=== PATIENT | male | born 1980 | race Caucasian/White ===

== ENCOUNTER 2019-03-26 12:45 | Emergency (ER) | payer BC ==
[2019-03-26 13:17] LABS: ABS Basophils 0.1 10^3/ul (0-0.2); ABS Eosinophils 0.1 10^3/ul (0-0.6); ABS Lymphocytes 2.9 10^3/ul (1.0-4.8); ABS Monocytes 0.8 10^3/ul (0-0.8); ABS Neutrophils 4.2 10^3/ul (1.5-7.7); Eosinophil % 1.6 %; Hematocrit 45 % (42-52); Hemoglobin 15.4 g/dL (14.0-18.0); Lymphocyte % 35.4 %; Mean Corpuscular HGB Conc 34 g/dL (31-36); Mean Corpuscular Hemoglobin 28 pg (27-31); Mean Corpuscular Volume 81 fL (80-94); Mean Platelet Volume 7.1 fL (7.4-10.4); Nucleated Red Blood Cells % 0.1; Platelet Count 276 10^3/uL (150-450); Red Blood Count 5.52 10^6 /uL (4.18-5.48); Red Cell Distribution Width 14 % (10-15); White Blood Count 8.1 10^3/uL (3.5-10.8)
[2019-03-26 13:30] LABS: INR 0.91 (0.82-1.09)
[2019-03-26 13:41] LABS: Albumin 4.4 g/dL (3.2-5.2); Albumin/Globulin Ratio 1.4 (1-3); BUN/Creatinine Ratio 15.3 (8-20); Calcium 9.7 mg/dL (8.6-10.3); EGFR African American 122.1 (>60); EGFR Non-African American 100.9 (>60); Globulin 3.2 g/dL (2-4); Total Bilirubin 0.4 mg/dL (0.2-1.0); Total Protein 7.6 g/dL (6.4-8.9)
[2019-03-26 14:04] LABS: Potassium 3.7 mmol/L (3.5-5.0)
[2019-03-26] MEDS ORDERED: NS 0.9% 1000 ML** 1,000 ML IV ONE (14:21)
--- NOTE | 2019-03-26 14:31 | ED ---
Dizziness - HPI Summary HPI Summary: Patient is a 38 y/o M presenting to the ED for a chief complaint of dizziness. Patient is present with his and daughter. Patient states that on 03/26/19, patient was at [employer] in a standing position and suddenly felt dizziness and near syncope that lasted for 20 seconds before resolving. Patient states he felt a jaramillo sensation in his head as well. Patient states he typically has a severe headache every month, but has not had a headache for the last 3-4 weeks. Patient denies SOB, palpitations, CP, nausea, vomiting, diarrhea, blood in the stool, slurred speech, or weakness on one side of the body. Patient denies similar symptoms in the past. Patient has a PMHx of HTN, PSHx of back surgery, and a FMHx of [place] and cardiac disease. Patient admits occasional alcohol use, but denies tobacco or drug use. - History Of Current Complaint Chief Complaint: EDDizziness Stated Complaint: NEAR SYNCOPE Time Seen by Provider: 03/26/19 13:49 Hx Obtained From: Patient Onset/Duration: Resolved Timing: Seconds - 20 seconds Severity Initially: Moderate Severity Currently: Moderate Character: Dizzy Aggravating Factor(s): Nothing Alleviating Factor(s): Nothing Associated Signs And Symptoms: Positive: Other: - Positive near syncope. Negative: Nausea, Vomiting, Diarrhea, Chest Pain, SOB, Palpitations, Blood In Stool, Slurred Speech - Allergies/Home Medications Allergies/Adverse Reactions: Allergies Allergy/AdvReac Type Severity Reaction Status Date / Time No Known Allergies Allergy Verified 03/26/19 12:51 Home Medications: Home Medications Hydrochlorothiazide TAB* [Hydrodiuril TAB*] 12.5 mg PO DAILY 03/26/19 [History Confirmed 03/26/19] Losartan TAB* [Cozaar TAB*] 100 mg PO DAILY 03/26/19 [History Confirmed 03/26/19 ] amLODIPine TAB* [Norvasc 5 mg TAB*] 5 mg PO DAILY 03/26/19 [History Confirmed ] PMH/Surg Hx/FS Hx/Imm Hx Previously Healthy: Yes Endocrine/Hematology History: Denies: Hx Diabetes Cardiovascular History: Reports: Hx Hypertension Denies: Hx Hypercholesterolemia Sensory History: Denies: Hx Legally Blind, Hx Deafness Opthamlomology History: Denies: Hx Legally Blind EENT History: Denies: Hx Deafness - Surgical History Surgical History: Yes Surgery Procedure, Year, and Place: Back surgery - Immunization History Date of Influenza Vaccine: 02/28/2019 Immunizations Up to Date: Yes Infectious Disease History: No Infectious Disease History: Denies: Traveled Outside the [place] in Last 30 Days - Family History Known Family History: Positive: Cardiac Disease, Other - [place] - Social History Occupation: Employed Full-time Lives: With Family Alcohol Use: Weekly Hx Substance Use: No Substance Use Type: Reports: None Hx Tobacco Use: No Smoking Status (MU): Never Smoked Tobacco Review of Systems Negative: Palpitations, Chest Pain Negative: Shortness Of Breath Positive: Other - Negative blood in stool. Negative: Vomiting, Diarrhea, Nausea Neurological: Other - Positive dizziness and near syncope Positive: Headache - Not at present time. Negative: Weakness - One side of body , Slurred Speech All Other Systems Reviewed And Are Negative: Yes Physical Exam - Summary Physical Exam Summary: Constitutional: Well-developed, Well-nourished, Alert. (-) Distressed Skin: Warm, Dry HENT: Normocephalic; Atraumatic Eyes: Conjunctiva normal Neck: Musculoskeletal ROM normal neck. (-) JVD, (-) Stridor, (-) Tracheal deviation Cardio: Rhythm regular. Heart sounds normal; Intact distal pulses; Radial pulses are 2+ and symmetric. (-) Murmur. Tachycardic between 101-110. Pulmonary/Chest wall: Effort normal. (-) Respiratory distress, (-) Wheezes, (-) Rales Abd: Soft, (-) tenderness, (-) Distension, (-) Guarding, (-) Rebound Musculoskeletal: (-) Edema Lymph: (-) Cervical adenopathy Neuro: Alert, Oriented x3 Psych: Mood and affect Normal Triage Information Reviewed: Yes Vital Signs On Initial Exam: Initial Vitals Temp Pulse Resp BP Pulse Ox 96.1 F 106 18 173/113 97 03/26/19 12:49 03/26/19 12:49 03/26/19 12:49 03/26/19 12:49 03/26/19 12:49 Vital Signs Reviewed: Yes Procedures - Sedation Patient Received Moderate/Deep Sedation with Procedure: No Diagnostics - Vital Signs Vital Signs Temp Pulse Resp BP Pulse Ox 03/26/19 12:49 96.1 F 106 18 173/113 97 - Laboratory Lab Results: Lab Results 03/26/19 03/26/19 03/26/19 Range/Units 13:10 13:10 13:10 WBC 8.1 (3.5-10.8) 10^3/uL RBC 5.52 H (4.18-5.48) 10^6 /uL Hgb 15.4 (14.0-18.0) g/dL Hct 45 (42-52) % MCV 81 (80-94) fL MCH 28 (27-31) pg MCHC 34 (31-36) g/dL RDW 14 (10-15) % Plt Count 276 (150-450) 10^3/uL MPV 7.1 L (7.4-10.4) fL Neut % (Auto) 52.1 % Lymph % (Auto) 35.4 % Bell % (Auto) 10.0 % Eos % (Auto) 1.6 % Baso % (Auto) 0.9 % Absolute Neuts (auto) 4.2 (1.5-7.7) 10^3/ul Absolute Lymphs (auto) 2.9 (1.0-4.8) 10^3/ul Absolute Monos (auto) 0.8 (0-0.8) 10^3/ul Absolute Eos (auto) 0.1 (0-0.6) 10^3/ul Absolute Basos (auto) 0.1 (0-0.2) 10^3/ul Absolute Nucleated RBC 0.0 10^3/ul Nucleated RBC % 0.1 INR (Anticoag Therapy) 0.91 (0.82-1.09) D-Dimer, Quantitative Pending Sodium 141 (135-145) mmol/L Potassium 3.7 (3.5-5.0) mmol/L Chloride 105 (101-111) mmol/L Carbon Dioxide 28 (22-32) mmol/L Anion Gap 8 (2-11) mmol/L BUN 13 (6-24) mg/dL Creatinine 0.85 (0.67-1.17) mg/dL Est GFR ( Amer) 122.1 (>60) Est GFR (Non-Af Amer) 100.9 (>60) BUN/Creatinine Ratio 15.3 (8-20) Glucose 156 H (70-100) mg/dL Calcium 9.7 (8.6-10.3) mg/dL Total Bilirubin 0.40 (0.2-1.0) mg/dL AST 19 (13-39) U/L ALT 31 (7-52) U/L Alkaline Phosphatase 50 (34-104) U/L Troponin I 0.00 (<0.04) ng/mL Total Protein 7.6 (6.4-8.9) g/dL Albumin 4.4 (3.2-5.2) g/dL Globulin 3.2 (2-4) g/dL Albumin/Globulin Ratio 1.4 (1-3) TSH Pending Result Diagrams: 03/26/19 13:10 03/26/19 13:10 Lab Statement: Any lab studies that have been ordered have been reviewed, and results considered in the medical decision making process. - EKG 12:52 Cardiac Rate: Tachycardia - 102 BPM EKG Rhythm: Sinus Tachycardia ST Segment: Normal Ectopy: None Summary of EKG Findings: EKG at 12:52 reveals 102 BPM with sinus tachycardia, Q wave in III, S wave in I. Reviewed and interpreted by ED physician. Dizzy Course/Dx - Course Course Of Treatment: Patient is here with an episode of near syncope. Patient is back to his baseline upon arrival. Patient's EKG showed no evidence of underlying arrhythmia. Patient had blood performed which was grossly unremarkable. Patient was given cardiology follow up for possible holter monitor. - Diagnoses Provider Diagnoses: Near syncope Discharge ED - Sign-Out/Discharge Documenting (check all that apply): Patient Departure - Discharge - Discharge Plan Condition: Stable Disposition: HOME Patient Education Materials: Near Syncope (ED) Referrals: Mk Green DO [Medical Doctor] - Timothy Delgado NP [Primary Care Provider] - Additional Instructions: Follow up with Dr. Green to evaluate a possible arrhythmia. Do not exercise until medically cleared by your primary care provider. Return to the Emergency Department if you faint, have a racing heart, chest pain, or trouble breathing. - Billing Disposition and Condition Condition: STABLE Disposition: Home - Attestation Statements Document Initiated by Scribe: Yes Documenting Scribe: Kristin Squires Provider For Whom Scribe is Documenting (Include Credential): Tushar Prieto MD Scribe Attestation: Kristin Villagran, scribed for Tushar Prieto MD on 03/26/19 at 205. Scribe Documentation Reviewed: Yes Provider Attestation: The documentation as recorded by the scribe, Kristin Squires accurately reflects the service I personally performed and the decisions made by me, Tushar Prieto MD Status of Scribe Document: Viewed
[2019-03-26 16:51] LABS: TSH (Thyroid Stimulating Horm) 3.57 mcIU/mL (0.34-5.60)
[2019-03-26 17:14] VITALS: BP 152/89
== END 2019-03-26 17:15 | disposition home or self-care (01) ==
LOC: ED 12:45
DX: R55 Syncope and collapse (principal); I10 Essential (primary) hypertension; Z79.899 Other long term (current) drug therapy
CPT/HCPCS: 36415; 80053; 84443; 84484; 85025; 85379; 85610; 93005; 96360; 96361; 99283

== ENCOUNTER 2019-05-20 18:17 | Emergency (ER) | payer BC ==
--- OUTSIDE RECORDS SUMMARY | 2019-05-20 18:47 | XMS REPORT | Continuity of Care Document ---
:1980 External Reference #:[id number] Author Name Timothy Delgado NP (transmitted by agent of provider Rose Tubbs) Address [address], [place] [address] Problems Active Problems Provider Date Essential hypertension Timothy Delgado NP Onset: 03/27/2017 Type 2 diabetes mellitus Timothy Delgado NP Onset: 07/28/2018 Social History Type Date Description Comments Sex Unknown ETOH Use Occasionally consumes alcohol Tobacco Use Start: Unknown Patient has never smoked Smoking Status Reviewed: 04/06/19 Patient has never smoked Exercise Type/Frequency Exercises regularly Allergies, Adverse Reactions, Alerts Description No Known Drug Allergies Medications Active Medications SIG Qnty Indications Ordering Date Provider Losartan Potassium 1 by mouth 90tabs Timothy Delgado NP 01/30/2019 100mg Tablets every day Hydrochlorothiazide 1 by mouth 90caps Timothy Delgado NP 01/30/2019 12.5mg every day Capsules Cpap Mask And Supplies use with cpap 1units G47.33 Timothy Delgado NP 2017 Device nightly Amlodipine Besylate take 03/28 45tabs Timothy Delgado NP 5mg Tablets tablets by mouth every day Immunizations Description No Information Available Vital Signs Date Vital Result Comment 04/06/2019 1:33pm Height 71.5 inches 5'11.50" Weight 249.25 lb Heart Rate 77 /min BP Systolic 145 mmHg BP Diastolic 90 mmHg Body Temperature 98.2 F O2 % BldC Oximetry 96 % BMI (Body Mass Index) 34.3 kg/m2 09/22/2018 12:35pm Height 71.5 inches 5'11.50" Weight 277.00 lb BP Systolic Sitting 160 mmHg BP Diastolic Sitting 90 mmHg Pain Level 2 BMI (Body Mass Index) 38.1 kg/m2 Results Test Acquired Date Facility Test Result H/L Range Note Lipid Profile 04/06/2019 [facility] Triglycerides 222 mg/dL 1, 2 (Trig/Chol/HDL) [address] [place] [address] [phone] Cholesterol 196 mg/dL 3 HDL Cholesterol 31.2 mg/dL 4 LDL Cholesterol 120 mg/dL 5 Laboratory test 04/06/2019 [facility] Hemoglobin A1c 6.1 % High 4.0-5.6 6 finding 101 (Glyco HGB) [place] [address] [phone] CBC Auto Diff 03/26/2019 [facility] White Blood 8.1 Normal 3.5 -10.[address] Count 10^3/[place] [address] [phone] Red Blood Count 5.52 10^6/uL High 4.18-5.48 Hemoglobin 15.4 g/dL Normal 14.0-18.0 Hematocrit 45 % Normal 42-52 Mean Corpuscular Volume 81 fL Normal 80-94 Mean Corpuscular Hemoglobin 28 pg Normal 27-31 Mean Corpuscular HGB Conc 34 g/dL Normal 31-36 Red Cell Distribution Width 14 % Normal 10-15 Platelet Count 276 10^3/uL Normal 150-450 Mean Platelet Volume 7.1 fL Low 7.4-10.4 Abs Neutrophils 4.2 10^3/uL Normal 1.5-7.7 Abs Lymphocytes 2.9 10^3/uL Normal 1.0-4.8 Abs Monocytes 0.8 10^3/uL Normal 0-0.8 Abs Eosinophils 0.1 10^3/uL Normal 0-0.6 Abs Basophils 0.1 10^3/uL Normal 0-0.2 Abs Nucleated RBC 0.0 10^3/uL Granulocyte % 52.1 % Lymphocyte % 35.4 % Monocyte % 10.0 % Eosinophil % 1.6 % Basophil % 0.9 % Nucleated Red Blood Cells % 0.1 Inr/Protime 03/26/2019 [facility] Inr 0.91 Normal 0.82-1.[address] [place] [address] [phone] Comp Metabolic 03/26/2019 [facility] Sodium 141 mmol/L Normal 135-[address] [place] [address] [phone] Chloride 105 mmol/L Normal 101-111 Co2 Carbon Dioxide 28 mmol/L Normal 22-32 Glucose 156 mg/dL High 70-100 Blood Urea Nitrogen 13 mg/dL Normal 6-24 Creatinine 0.85 mg/dL Normal 0.67-1.17 BUN/Creatinine Ratio 15.3 Normal 8-20 Calcium 9.7 mg/dL Normal 8.6-10.3 Total Protein 7.6 g/dL Normal 6.4-8.9 Albumin 4.4 g/dL Normal 3.2-5.2 Globulin 3.2 g/dL Normal 2-4 Albumin/Globulin Ratio 1.4 Normal 1-3 Total Bilirubin 0.40 mg/dL Normal 0.2-1.0 Alkaline Phosphatase 50 U/L Normal 34-104 Alt 31 U/L Normal 7-52 Egfr Non- 100.9 >60 Egfr 122.1 >60 8 Potassium 3.7 mmol/L Normal 3.5-5.0 Anion Gap 8 mmol/L Normal 2-11 Ast 19 U/L Normal 13-39 Laboratory test 03/26/2019 [facility] Troponin-I (TnI) 0.00 ng/ mL <0.04 9 finding [address] [place] [address] [phone] D Dimer Quantitative < 200 ng/mL Normal Less Than 230 10 TSH (Thyroid Stim Horm) 3.57 mcIU/mL Normal 0.34-5.60 1 FASTING 2 Desirable: <150 Borderline High: 150-199 High: 200-499 Very High: >500 3 Desirable: <200 Borderline High: 200-239 High: >239 4 Low: <40 Desirable: 40-60 High: >60 5 Desirable: <100 Near Optimal: 100-129 Borderline High: 130-159 High: 160-189 Very High: >189 6 Therapeutic target for the treatment of diabetes mellitus patients is <7% HBA1C, and in selective patients <6.0%. Please refer to [place] Diabetes Association diabetic care guidelines for further information. 7 Standard intensity warfarin therapeutic range: 2.0-3.0 High intensity warfarin therapeutic range: 2.5-3.5 8 Because ethnic data is not always readily available, this report includes an eGFR for both -Americans and non- Americans. The National Kidney Disease Education Program (NKDEP) does not endorse the use of the MDRD equation for patients that are not between the ages of 18 and 70, are , have extremes of body size, muscle mass, or nutritional status, or are non- or non-. According to the National Kidney Foundation, irrespective of diagnosis, the stage of the disease is based on the level of kidney function: Stage Description GFR(mL/min/1.73 m(2)) 1 Kidney damage with normal or decreased GFR 90 2 Kidney damage with mild decrease in GFR 60-89 3 Moderate decrease in GFR 30-59 4 Severe decrease in GFR 15-29 5 Kidney failure <15 (or dialysis) 9 Troponin-I testing on Plasma Separator Tubes (PST) has a known false positive rate of 0.20-0.40%. All positive troponins reflex immediately to secondary confirmatory testing. Using the Connectbeam 800 Access Immunoassay systems, the 99th percentile upper reference limit was demonstrated to be < 0.03 ng/mL. 10 Please note: The following may produce a false positive D Dimer test: - Rheumatoid factor greater than 60 IU/ml - Plasma hemoglobin greater than 0.05 gm/dl - Bilirubin greater than 50 mg/dl - Lipids greater than 1000 mg/dl - FDP greater than 20 ug/ml Procedures Description No Information Available Medical Devices Description No Information Available Encounters Description No Information Available Assessments Date Code Description Provider 04/06/2019 E11.9 Type 2 diabetes mellitus without complications Timothy Delgado NP 04/06/2019 I10 Essential (primary) hypertension Timothy Delgado NP Plan of Treatment Future Appointment(s):07/07/2019 9:40 am - Timothy Delgado NP at [facility]05/07/2019 9:20 am - Timothy Delgado NP at [facility]05/26/2019 3:15 pm - Emmy Cat MD at [facility] Hokjkbntwrg29/11/2019 - Timothy Delgado NPE11.9 Type 2 diabetes mellitus without complicationsNew Labs: Hemoglobin A1c (Glyco HGB), Ordered: 04/06/19Comments:Your A1c is 6.1% Continue limiting carbohydrates in your diet.Follow up:3 months, 20 minRecommendations: See your financial services manager every year. It is OK to go every 2 years if he finds no retinal damage from diabetes. Ask your financial services manager to communicate his findings to us. See a cotton sampler every 6 months if you have numbness in your feet or a history of foot ulcers.I10 Essential (primary) hypertensionComments: HYPERTENSION:Your blood pressure is slightly elevated today. Increase the Amlodipine to 7.5mg. If your blood pressure at home remains greater than 135/85 regularly (either number) increase to 10mg. I recommend checking your blood pressure at least 2-3 times a week. If it is running greater than 135/ 85regularly let me know.Follow up:4 weeks Goals 04/06/2019 - Timothy Delgado, NPE11.9 Type 2 diabetes mellitus without complicationsGoal Hemoglobin A1c is less than 7.0%. Goal Blood pressure is less than 130/85. Functional Status Description No Information Available Mental Status Description No Information Available Referrals Description No Information Available
--- OUTSIDE RECORDS SUMMARY | 2019-05-20 18:47 | XMS REPORT | Continuity of Care Document ---
:1980 External Reference #:[id number] Author Name Timothy Delgado NP (transmitted by agent of provider Rose Tubbs) Address [address] [place], [address] [place] [address] Problems Active Problems Provider Date Essential hypertension Timothy Delgado NP Onset: 03/27/2017 Type 2 diabetes mellitus Timothy Delgado NP Onset: 07/28/2018 Social History Type Date Description Comments Sex Unknown ETOH Use Occasionally consumes alcohol Tobacco Use Start: Unknown Patient has never smoked Smoking Status Reviewed: 05/07/19 Patient has never smoked Exercise Type/Frequency Exercises regularly Allergies, Adverse Reactions, Alerts Description No Known Drug Allergies Medications Active Medications SIG Qnty Indications Ordering Date Provider Amlodipine Besylate 1 by mouth 90tabs Timothy Delgado NP 05/07/2019 10mg Tablets every day Losartan Potassium 1 by mouth 90tabs Timothy Delgado NP 01/30/2019 100mg Tablets every day Hydrochlorothiazide 1 by mouth 90caps Timothy Delgado NP 01/30/2019 12.5mg every day Capsules Cpap Mask And Supplies use with cpap 1units G47.33 Timothy Delgado NP 2017 Device nightly Immunizations Description No Information Available Vital Signs Date Vital Result Comment 05/07/2019 9:32am Height 71.5 inches 5'11.50" Weight 277.00 lb Heart Rate 95 /min BP Systolic 148 mmHg BP Diastolic 98 mmHg BP Systolic Recheck 158 mmHg BP Diastolic Recheck 88 mmHg Body Temperature 98.2 F O2 % BldC Oximetry 98 % BMI (Body Mass Index) 38.1 kg/m2 04/06/2019 1:33pm Height 71.5 inches 5'11.50" Weight 249.25 lb Heart Rate 77 /min BP Systolic 145 mmHg BP Diastolic 90 mmHg Body Temperature 98.2 F O2 % BldC Oximetry 96 % BMI (Body Mass Index) 34.3 kg/m2 Results Test Acquired Date Facility Test Result H/L Range Note Lipid Profile 04/06/2019 [facility] Triglycerides 222 mg/dL 1, 2 (Trig/Chol/HDL) [address] [place] [address] [phone] Cholesterol 196 mg/dL 3 HDL Cholesterol 31.2 mg/dL 4 LDL Cholesterol 120 mg/dL 5 Laboratory test 04/06/2019 [facility] Hemoglobin A1c 6.1 % High 4.0-5.6 6 finding 101 (Glyco HGB) [place] [address] [phone] CBC Auto Diff 03/26/2019 [facility] White Blood 8.1 Normal 3.5 -10.8 Count 10^3/[place] [address] [phone] Red Blood Count 5.52 10^6/uL High 4.18-5.48 [...] Red Blood Cells % 0.1 Inr/Protime 03/26/2019 [facility] Inr 0.91 Normal 0.82-1.09 7 [address] [place] [address] [phone] Comp Metabolic 03/26/2019 [facility] Sodium 141 mmol/L Normal 135-145 Panel [address] [place] [address] [phone] Chloride 105 mmol/L Normal 101-111 Co2 Carbon [...] 19 U/L Normal 13-39 Laboratory test 03/26/2019 [facility] Troponin-I (TnI) 0.00 ng/ mL <0.04 9 finding [address] [place] [address] [phone] D Dimer Quantitative < 200 ng/mL Normal [...] in selective patients <6.0%. Please refer to [place] Diabetes Association diabetic care guidelines for further [...] immediately to secondary confirmatory testing. Using the SuppreMol DxI 800 Access Immunoassay systems, the 99th percentile [...] Medical Devices Description No Information Available Encounters Type Date Location Provider Dx Diagnosis Office Visit 05/07/2019 [facility] Internal Timothy Delgado NP I10 Essential (primary ) 9:20a Medicine [facility] hypertension Office Visit 04/06/2019 [facility] Internal Timothy Delgado NP E11.9 Type 2 diabetes 1:40p Medicine [facility] mellitus without complications I10 Essential (primary) hypertension Assessments Date Code Description Provider 05/07/2019 I10 Essential (primary) hypertension Timothy Delgado NP 04/06/2019 E11.9 Type 2 diabetes mellitus without complications Timothy Delgado NP 04/06/2019 I10 Essential (primary) hypertension Timothy Delgado NP Plan of Treatment Future Appointment(s):06/16/2019 9:40 am - [facility] - [facility] 3[facility]15 pm - Emmy Cat MD at [facility] Uzkneofvetk58/12/2019 - Timothy Delgado, NPI10 Essential (primary) hypertensionComments:Increase the amlodipine to 10mg. Continue checking your blood pressure as you have been. If, after two weeks you are still regularly getting readings over 135/85 (either number) increase the hydrochlorothiazide to 25mg.Follow up:4 weeks Functional Status Description No Information Available Mental Status Description No Information Available Referrals Description No Information Available
[2019-05-20 19:27] LABS: ABS Basophils 0.1 10^3/ul (0-0.2); ABS Eosinophils 0.1 10^3/ul (0-0.6); ABS Lymphocytes 2.7 10^3/ul (1.0-4.8); ABS Monocytes 0.7 10^3/ul (0-0.8); Eosinophil % 1.3 %; Hematocrit 46 % (42-52); Hemoglobin 15.8 g/dL (14.0-18.0); Lymphocyte % 31.9 %; Mean Corpuscular HGB Conc 35 g/dL (31-36); Mean Corpuscular Hemoglobin 28 pg (27-31); Mean Corpuscular Volume 81 fL (80-94); Mean Platelet Volume 7.1 fL (7.4-10.4); Nucleated Red Blood Cells % 0.1; Platelet Count 275 10^3/uL (150-450); Red Blood Count 5.65 10^6 /uL (4.18-5.48); Red Cell Distribution Width 14 % (10-15); White Blood Count 8.6 10^3/uL (3.5-10.8)
--- NOTE | 2019-05-20 19:41 | ED ---
Hypertension - HPI Summary HPI Summary: The patient is a 38 y/o M presenting to [facility] with a chief complaint of elevated BP today. He reports that he measures his BP regularly since he has a history of HTN, and he found that that the reading was 199/124 mmHg with a HR of 106 bpm, which is unusual for him. He last checked his BP a few days ago. He denies any CP, SOB, dizziness, vision changes, or headache. He states he has been dealing with cold symptoms and has taken Sudafed yesterday. There are no aggravating or alleviating factors. He takes Amlodipine, Losartan, and Hydrochlorothiazide daily, and he hasnt missed any doses recently. He notes that the Amlodipine was recently increased from 5mg to 10mg. No other PMHx. Nonsmoker, weekly EtOH, no substance use. Medications reviewed. Allergies noted. - History of Current Complaint Chief Complaint: EDHypertension Stated Complaint: HIGH BLOOD PRESSURE PER PT Time Seen by Provider: 05/20/19 19:15 Hx Obtained From: Patient Onset/Duration: Started Minutes Ago, Still Present Timing: Lasting Minutes Reported Blood Pressure Prior To Arrival: 199/124 mmHg Aggravating Factor(s): Nothing Alleviating Factor(s): Nothing Associated Signs & Symptoms: Other: - Negative: dizziness, CP, SOB, KEARNS, vision changes Related Hx: Diagnosed As: - HTN Current Medications: ARB, [place], Diuretic - Allergies/Home Medications Allergies/Adverse Reactions: Allergies Allergy/AdvReac Type Severity Reaction Status Date / Time No Known Allergies Allergy Verified 05/20/19 18:20 PMH/Surg Hx/FS Hx/Imm Hx Endocrine/Hematology History: Denies: Hx Diabetes Cardiovascular History: Reports: Hx Hypertension Denies: Hx Hypercholesterolemia Sensory History: Denies: Hx Legally Blind, Hx Deafness Opthamlomology History: Denies: Hx Legally Blind - Surgical History Surgical History: Yes Surgery Procedure, Year, and Place: Back surgery - Immunization History Date of Influenza Vaccine: Infectious Disease History: No Infectious Disease History: Denies: Traveled Outside the [place] in Last 30 Days - Family History Known Family History: Positive: Cardiac Disease, Other - [place] - Social History Alcohol Use: Weekly Hx Substance Use: No Substance Use Type: Reports: None Hx Tobacco Use: No Smoking Status (MU): Never Smoked Tobacco Review of Systems Negative: Blurred Vision Positive: Other - elevated BP. Negative: Chest Pain Negative: Shortness Of Breath Neurological: Other - Negative: dizziness Negative: Headache All Other Systems Reviewed And Are Negative: Yes Physical Exam - Summary Physical Exam Summary: Constitutional: Well-developed, Well-nourished, Alert. (-) Distressed Skin: Warm, Dry HENT: Normocephalic; Atraumatic Eyes: Conjunctiva normal Neck: Musculoskeletal ROM normal neck. (-) JVD, (-) Stridor, (-) Tracheal deviation Cardio: Rhythm regular, rate normal, Heart sounds normal; Intact distal pulses; Radial pulses are 2+ and symmetric. (-) Murmur Pulmonary/Chest wall: Effort normal. (-) Respiratory distress, (-) Wheezes, (-) Rales Abd: Soft, (-) tenderness, (-) Distension, (-) Guarding, (-) Rebound Musculoskeletal: (-) Edema Lymph: (-) Cervical adenopathy Neuro: Alert, Oriented x3 Psych: Mood and affect Normal Triage Information Reviewed: Yes Vital Signs On Initial Exam: Initial Vitals Temp Pulse Resp BP Pulse Ox 98.6 F 104 22 174/115 99 05/20/19 18:18 05/20/19 18:18 05/20/19 18:18 05/20/19 18:18 05/20/19 18:18 Vital Signs Reviewed: Yes Procedures - Sedation Patient Received Moderate/Deep Sedation with Procedure: No Diagnostics - Vital Signs Vital Signs Temp Pulse Resp BP Pulse Ox 05/20/19 18:18 98.6 F 104 22 174/115 99 - Laboratory Lab Results: Lab Results 05/20/19 Range/Units 19:21 WBC 8.6 (3.5-10.8) 10^3/uL RBC 5.65 H (4.18-5.48) 10^6 /uL Hgb 15.8 (14.0-18.0) g/dL Hct 46 (42-52) % MCV 81 (80-94) fL MCH 28 (27-31) pg MCHC 35 (31-36) g/dL RDW 14 (10-15) % Plt Count 275 (150-450) 10^3/uL MPV 7.1 L (7.4-10.4) fL Neut % (Auto) 58.5 % Lymph % (Auto) 31.9 % Dewitt % (Auto) 7.6 % Eos % (Auto) 1.3 % Baso % (Auto) 0.7 % Absolute Neuts (auto) 5.0 (1.5-7.7) 10^3/ul Absolute Lymphs (auto) 2.7 (1.0-4.8) 10^3/ul Absolute Monos (auto) 0.7 (0-0.8) 10^3/ul Absolute Eos (auto) 0.1 (0-0.6) 10^3/ul Absolute Basos (auto) 0.1 (0-0.2) 10^3/ul Absolute Nucleated RBC 0.0 10^3/ul Nucleated RBC % 0.1 Result Diagrams: 05/20/19 19:21 05/20/19 19:21 Lab Statement: Any lab studies that have been ordered have been reviewed, and results considered in the medical decision making process. - EKG 1940 Cardiac Rate: NL - 96 bpm EKG Rhythm: Sinus Rhythm Summary of EKG Findings: EKG at 1940 reveals sinus rhythm at 96 bpm. No STEMI. ED physician has reviewed and interpreted this EKG. Re-Evaluation - Re-Evaluation First Eval Re-Evaluation Time: 20:15 Comment: We discussed results and plan for discharge. Hypertension Course/Dx - Course Course Of Treatment: Patient is here with asymptomatic hypertension. Patient was just measuring his blood pressure randomly today noted to be higher than normal. Patient had no evidence of end-stage organ damage on physical exam or history. Patient had an EKG which showed no evidence of ischemia. Patient had a negative troponin, negative Cr for kidney damage. Patient has been treating a viral URI with pseudoephedrine yesterday which could have raised his blood pressure today. Patient was encouraged to follow up with his primary care doctor for better management of his blood pressure. - Diagnoses Provider Diagnoses: HTN (hypertension) Discharge ED - Sign-Out/Discharge Documenting (check all that apply): Patient Departure - Patient will be discharged home. - Discharge Plan Condition: Stable Disposition: HOME Patient Education Materials: Chronic Hypertension (ED) Referrals: Timothy Delgado [facility] [Primary Care Provider] - 3 Days Additional Instructions: Follow up with your primary care provider in 1-3 days for a stress test. Return to the emergency department for any vision changes, chest pain, dizziness, slurred speech, weakness on one side of the body, or any other concerning symptoms. - Billing Disposition and Condition Condition: STABLE Disposition: Home - Attestation Statements Document Initiated by Vicky: Yes Documenting Scribe: Janet Chew Provider For Whom Vicky is Documenting (Include Credential): Dr. Tushar Prieto MD Scribe Attestation: Janet Villagran scribed for Dr. Tushar Prieto MD on 05/20/19 at 2105. Scribe Documentation Reviewed: Yes Provider Attestation: The documentation as recorded by the Janet butler accurately reflects the service I personally performed and the decisions made by me, Dr. Tushar Prieto MD Status of Vicky Document: Viewed
[2019-05-20 19:44] LABS: BUN/Creatinine Ratio 15.3 (8-20); Calcium 9.3 mg/dL (8.6-10.3); EGFR African American 147.8 (>60); EGFR Non-African American 122.2 (>60); Potassium 3.2 mmol/L (3.5-5.0)
[2019-05-20] MEDS ORDERED: Ibuprofen TAB* 600 MG PO ONE (20:08)
[2019-05-20 20:17] VITALS: BP 175/106
== END 2019-05-20 20:18 | disposition home or self-care (01) ==
LOC: ED 18:17
DX: I10 Essential (primary) hypertension (principal); Z79.899 Other long term (current) drug therapy
CPT/HCPCS: 36415; 80048; 84484; 85025; 93005; 99282; A9270-GY

== ENCOUNTER 2019-08-24 18:19 | Emergency (ER) | payer BC, OTHER ==
--- OUTSIDE RECORDS SUMMARY | 2019-08-24 18:48 | XMS REPORT | Continuity of Care Document ---
:1980 External Reference #:[id number] Author Name Timothy Delgado NP (transmitted by agent of provider Courtney Sherman) Address [address] [facility], [place] [address] Problems Active Problems Provider Date Essential hypertension Timothy Delgado NP Onset: 03/27/2017 Type 2 diabetes mellitus Timothy Delgado NP Onset: 07/28/2018 Sprain of ankle Misael Barney MD Onset: 07/27/2019 Social History Type Date Description Comments Sex Unknown ETOH Use Occasionally consumes alcohol Tobacco Use Start: Unknown Patient has never smoked Recreational Drug Use Denies Drug Use Smoking Status Reviewed: 08/11/19 Patient has never smoked Exercise Type/Frequency Exercises regularly gym, weights, 3-4 days per week. Allergies, Adverse Reactions, Alerts Description No Known Drug Allergies Medications Active Medications SIG Qnty Indications Ordering Provider Date Eplerenone 50mg once daily 30tabs E87.6 Kenny Clark MD 08/04/2019 50mg Tablets Atenolol 1 by mouth every 90tabs I10 Timothy Delgado NP 07/01/2019 50mg Tablets day Amlodipine Besylate 1 by mouth every 90tabs Timothy Delgado NP 05/07/2019 day 10mg Tablets Cpap Mask And use with cpap 1units G47.33 Timothy Delgado NP 05/22/2018 Supplies nightly Device History Medications Irbesartan 1 by mouth 30tabs Timothy Delgado NP 08/10/2019 - 150mg Tablets every day 08/11/2019 Losartan Potassium 1 by mouth 90tabs Timothy Delgado NP 08/07/2019 - 100mg Tablets every day 08/10/2019 Hydrochlorothiazide 1 by mouth 90caps Timothy Delgado NP 08/07/2019 - 12.5mg Capsules every day 08/11/2019 Losartan 1 by mouth 90tabs Timothy Delgado NP 08/04/2019 - Potassium/Hydrochlorothiazid every day 08/06/2019 e 100-12.5mg Tablets Atenolol 1 by mouth 90tabs I10 Timothy Delgado NP 05/21/2019 - 25mg Tablets every day 07/01/2019 Immunizations Description No Information Available Vital Signs Date Vital Result Comment 08/11/2019 9:27am Height 72 inches 6'0" Weight 277.00 lb Heart Rate 64 /min BP Systolic Sitting 129 mmHg BP Diastolic Sitting 79 mmHg BP Systolic Recheck 134 mmHg BP Diastolic Recheck 88 mmHg Body Temperature 97.2 F O2 % BldC Oximetry 97 % BMI (Body Mass Index) 37.6 kg/m2 08/04/2019 8:54am Height 72 inches 6'0" Weight 284.00 lb w/ shoes/walking boot Heart Rate 64 /min BP Systolic Sitting 135 mmHg BP Diastolic Sitting 91 mmHg BMI (Body Mass Index) 38.5 kg/m2 Results Test Acquired Date Facility Test Result H/L Range Note Lipid Profile 08/05/2019 [facility] Triglycerides 185 mg/dL 1 (Trig/Chol/HDL) [address] [place] [address] [phone] Cholesterol 188 mg/dL 2 HDL Cholesterol 36.6 mg/dL 3 LDL Cholesterol 114 mg/dL 4 Laboratory test 08/05/2019 [facility] Hemoglobin A1c 6.1 % High 4.0-5.6 5 finding (Glyco HGB) [place] [address] [phone] Laboratory test 08/05/2019 [facility] Aldosterone 7.1 <=[address] ng/[place] [address] [phone] Renin <0.6 ng/mL/h 7 Cortisol 4.04 g/dL 8 Acth 17 pg/mL 9 Magnesium 1.9 mg/dL Normal 1.9-2.7 Basic Metabolic 08/05/2019 [facility] Sodium 141 mmol/L Normal 135-145 Panel [address] [place] [address] [phone] Potassium 3.8 mmol/L Normal 3.5-5.0 Chloride 105 mmol/L Normal 101-111 Co2 Carbon Dioxide 27 mmol/L Normal 22-32 Anion Gap 9 mmol/L Normal 2-11 Glucose 124 mg/dL High 70-100 Blood Urea Nitrogen 13 mg/dL Normal 6-24 Creatinine 0.63 mg/dL Low 0.67-1.17 BUN/Creatinine Ratio 20.6 High 8-20 Calcium 9.7 mg/dL Normal 8.6-10.3 Egfr Non- 142.5 >60 Egfr 172.5 >60 10 Aldosterone 05/25/2019 [facility] Urine 33 mcg/24h Abnormal 2.0-[address] [place] [address] [phone] Urine Collection Duration 24 h Urine Volume 3850 mL 11 Urine Metanephrines 05/25/2019 [facility] Urine 162 mcg/24h [address] [place] [address] [phone] Urine Normetanephrine 543 mcg/24h 13 Urine Total Metanephrines 705 mcg/24h 14 Urine Collection Duration 24 h Urine Volume 3850 mL 15 Basic Metabolic 05/25/2019 [facility] Sodium 137 mmol/L Normal 135-[address] [place] [address] [phone] Potassium 3.7 mmol/L Normal 3.5-5.0 Chloride 102 mmol/L Normal 101-111 Co2 Carbon Dioxide 27 mmol/L Normal 22-32 Anion Gap 8 mmol/L Normal 2-11 Glucose 257 mg/dL High 70-100 Blood Urea Nitrogen 11 mg/dL Normal 6-24 Creatinine 0.73 mg/dL Normal 0.67-1.17 BUN/Creatinine Ratio 15.1 Normal 8-20 Calcium 9.0 mg/dL Normal 8.6-10.3 Egfr Non- 120.2 >60 Egfr 145.5 >60 16 Laboratory test 05/25/2019 [facility] Aldosterone 8.6 ng/dL < =21 [address] [place] [address] [phone] Sodium 24HR Urine 05/25/2019 [facility] Urine Collection [address] [place] [address] [phone] Urine Total Volume 3850 mL Urine Sodium Concentration 62 mmol/L Urine Sodium/24 Hour 238 mmol/24 High 40-220 Creatinine Clearance 05/25/2019 [facility] Urine Collection [address] [place] [address] [phone] Urine Total Volume 3850 mL Urine Creatinine Concentration 72.23 mg/dL Creatinine, Serum 0.73 mg/dL Normal 0.51-0.95 Creatinine Clearance 265 mL/min High 97-137 Catecholamine 24HR 05/25/2019 [facility] Urine Collection 24 h Urine Fract [address] [place] [address] [phone] Urine Total Volume 3850 mL Urine Norepinephrine 89 mcg/24h Abnormal 15-80 Urine Epinephrine 8.9 mcg/24h <21 Urine Dopamine 373 mcg/24h 65-400 18 CBC Auto 05/20/2019 [facility] White Blood 8.6 10^3/uL Normal 3.5-10.[address] [place] [address] [phone] Red Blood Count 5.65 10^6/uL High 4.18-5.48 Hemoglobin 15.8 g/dL Normal 14.0-18.0 Hematocrit 46 % Normal 42-52 Mean Corpuscular Volume 81 fL Normal 80-94 Mean Corpuscular Hemoglobin 28 pg Normal 27-31 Mean Corpuscular HGB Conc 35 g/dL Normal 31-36 Red Cell Distribution Width 14 % Normal 10-15 Platelet Count 275 10^3/uL Normal 150-450 Mean Platelet Volume 7.1 fL Low 7.4-10.4 Abs Neutrophils 5.0 10^3/uL Normal 1.5-7.7 Abs Lymphocytes 2.7 10^3/uL Normal 1.0-4.8 Abs Monocytes 0.7 10^3/uL Normal 0-0.8 Abs Eosinophils 0.1 10^3/uL Normal 0-0.6 Abs Basophils 0.1 10^3/uL Normal 0-0.2 Abs Nucleated RBC 0.0 10^3/uL Granulocyte % 58.5 % Lymphocyte % 31.9 % Monocyte % 7.6 % Eosinophil % 1.3 % Basophil % 0.7 % Nucleated Red Blood Cells % 0.1 Basic Metabolic 05/20/2019 [facility] Sodium 136 mmol/L Normal 135-[address] [place] [address] [phone] Potassium 3.2 mmol/L Low 3.5-5.0 Chloride 101 mmol/L Normal 101-111 Co2 Carbon Dioxide 28 mmol/L Normal 22-32 Anion Gap 7 mmol/L Normal 2-11 Glucose 133 mg/dL High 70-100 Blood Urea Nitrogen 11 mg/dL Normal 6-24 Creatinine 0.72 mg/dL Normal 0.67-1.17 BUN/Creatinine Ratio 15.3 Normal 8-20 Calcium 9.3 mg/dL Normal 8.6-10.3 Egfr Non- 122.2 >60 Egfr 147.8 >60 19 Laboratory test 05/20/2019 [facility] Troponin-I (TnI) 0.00 < 0.03 [address] ng/[place] [address] [phone] Lipid Profile 04/06/2019 [facility] Triglycerides 222 mg/dL 21, 22 (Trig/Chol/HDL) [address] [place] [address] [phone] Cholesterol 196 mg/dL 23 HDL Cholesterol 31.2 mg/dL 24 LDL Cholesterol 120 mg/dL 25 Laboratory test 04/06/2019 [facility] Hemoglobin A1c 6.1 % High 4.0-5.6 [address] (Glyco HGB) [place] [address] [phone] CBC Auto Diff 03/26/2019 [facility] White Blood 8.1 Normal 3.5 -10.[address] Count 10^3/[place] [address] [phone] Red Blood Count 5.52 10^6/uL High 4.18-5.48 [...] Red Blood Cells % 0.1 Inr/Protime 03/26/2019 [facility] Inr 0.91 Normal 0.82-1.[address] [place] [address] [phone] Comp Metabolic 03/26/2019 [facility] Sodium 141 mmol/L Normal 135-[address] [place] [address] [phone] Chloride 105 mmol/L Normal 101-111 Co2 Carbon [...] Egfr Non- 100.9 >60 Egfr 122.1 >60 28 Potassium 3.7 mmol/L Normal 3.5-5.0 Anion Gap 8 mmol/L Normal 2-11 Ast 19 U/L Normal 13-39 Laboratory test 03/26/2019 [facility] Troponin-I (TnI) 0.00 ng/ mL <0.04 29 finding [address] [place] [address] [phone] D Dimer Quantitative < 200 ng/mL Normal Less Than 230 30 TSH (Thyroid Stim Horm) 3.57 mcIU/mL Normal 0.34-5.60 1 Desirable: <150 Borderline High: 150-199 High: 200-499 Very High: >500 2 Desirable: <200 Borderline High: 200-239 High: >239 3 Low: <40 Desirable: 40-60 High: >60 4 Desirable: <100 Near Optimal: 100-129 Borderline High: 130-159 High: 160-189 Very High: >189 5 Therapeutic target for the treatment of diabetes mellitus patients is <7% HBA1C, and in selective patients <6.0%. Please refer to [place] [employer] diabetic care guidelines for further information. 6 ADDITIONAL INFORMATION Reference range for patients 11 years and older is based on upright A.M. collection from subjects without sodium restrictions. This test was developed and its performance characteristics determined by [facility] in a manner consistent with CLIA requirements. This test has not been cleared or approved by the U.S. Food and Drug Administration. Test Performed by: [facility] [place] [address] Vice President Quality Assurance: Amrik Matthew M.D. Ph.D.; CLIA# [id number] 7 REFERENCE VALUE (Peripheral vein specimen) Na-deplete, upright: Mean: 10.8 Range: 2.9-24 Na-replete, upright: Mean: 1.9 Range: < or =0.6-4.3 ADDITIONAL INFORMATION Testing performed by Liquid Chromatography-Tandem Mass Spectrometry (LC-MS/MS). This test was developed and its performance characteristics determined by [facility] in a manner consistent with CLIA requirements. This test has not been cleared or approved by the U.S. Food and Drug Administration. Test Performed by: [facility] [employer] [place] [address] Vice President Quality Assurance: Amrik Matthew M.D. Ph.D.; CLIA# [id number] 8 AM 8.7-22.4 PM <10 9 REFERENCE VALUE 7.2-63 (a.m. collection) Test Performed by: [facility] [place] [address] Vice President Quality Assurance: Amrik Matthew M.D. Ph.D.; CLIA# [id number] 10 Because ethnic data is not always readily [...] 15-29 5 Kidney failure <15 (or dialysis) 11 ADDITIONAL INFORMATION This test was developed and its performance characteristics determined by [facility] in a manner consistent with CLIA requirements. This test has not been cleared or approved by the U.S. Food and Drug Administration. Test Performed by: [facility] [employer] [place] [address] Vice President Quality Assurance: Amrik Matthew M.D. Ph.D.; CLIA# [id number] 12 REFERENCE VALUE 44-261 (Normotensive) <400 (Hypertensive) 13 REFERENCE VALUE 111-419 (Normotensive) <900 (Hypertensive) 14 REFERENCE VALUE 200-614 (Normotensive) <1300 (Hypertensive) 15 ADDITIONAL INFORMATION This test was developed and its performance characteristics determined by [facility] in a manner consistent with CLIA requirements. This test has not been cleared or approved by the U.S. Food and Drug Administration. Test Performed by: [facility] [employer] - [facility] [address] [place] [address] Vice President Quality Assurance: Amrik Matthew M.D. Ph.D.; CLIA# [id number] 16 Because ethnic data is not always readily [...] 15-29 5 Kidney failure <15 (or dialysis) 17 ADDITIONAL INFORMATION Reference range for patients 11 years and older is based on upright A.M. collection from subjects without sodium restrictions. This test was developed and its performance characteristics determined by [facility] in a manner consistent with CLIA requirements. This test has not been cleared or approved by the U.S. Food and Drug Administration. Test Performed by: [facility] [employer] - [place] [employer] [address] [place] [address] Vice President Quality Assurance: Amrik Matthew M.D. Ph.D.; CLIA# [id number] 18 ADDITIONAL INFORMATION This test was developed and its performance characteristics determined by [facility] in a manner consistent with CLIA requirements. This test has not been cleared or approved by the U.S. Food and Drug Administration. Test Performed by: [facility] [address] [place] [address] Vice President Quality Assurance: Amrik Matthew M.D. Ph.D.; CLIA# [id number] 19 Because ethnic data is not always readily [...] 15-29 5 Kidney failure <15 (or dialysis) 20 Troponin-I testing on Plasma Separator Tubes (PST) has a known false positive rate of 0.20-0.40%. All positive troponins reflex immediately to secondary confirmatory testing. Using the [employer] DxI 800 Access Immunoassay systems, the 99th percentile upper reference limit was demonstrated to be < 0.03 ng/mL. 21 FASTING 22 Desirable: <150 Borderline High: 150-199 High: 200-499 Very High: >500 23 Desirable: <200 Borderline High: 200-239 High: >239 24 Low: <40 Desirable: 40-60 High: >60 25 Desirable: <100 Near Optimal: 100-129 Borderline High: 130-159 High: 160-189 Very High: >189 26 Therapeutic target for the treatment of diabetes mellitus patients is <7% HBA1C, and in selective patients <6.0%. Please refer to [place] [employer] diabetic care guidelines for further information. 27 Standard intensity warfarin therapeutic range: 2.0-3.0 High intensity warfarin therapeutic range: 2.5-3.5 28 Because ethnic data is not always readily [...] 15-29 5 Kidney failure <15 (or dialysis) 29 Troponin-I testing on Plasma Separator Tubes (PST) has a known false positive rate of 0.20-0.40%. All positive troponins reflex immediately to secondary confirmatory testing. Using the [employer] DxI 800 Access Immunoassay systems, the 99th percentile upper reference limit was demonstrated to be < 0.03 ng/mL. 30 Please note: The following may produce a [...] Date Location Provider Dx Diagnosis Office Visit 08/11/2019 [facility] Internal Timothy Delgado NP E11.9 Type 2 diabetes 9:20a Medicine - [facility] mellitus without complications I10 Essential (primary) hypertension Office Visit 07/27/2019 [facility] [place], S93.491A Sprain of other 8:00a Orthopedics at [facility] [place] right ankle, initial encounter Office Visit 06/16/2019 [facility] Dermatology Emmy Cat, D22.5 Melanocytic nevi 11:45a MD of trunk L81.4 Other melanin hyperpigmentation Office Visit 06/16/2019 9:40a [facility] Internal Timothy Delgado, I10 Essential ( primary) Medicine - [facility] [employer] hypertension Office Visit 05/21/2019 2:20p [facility] Internal Timothy Danny, I10 Essential ( primary) Medicine - [facility] [employer] hypertension E87.6 Hypokalemia Office Visit 05/07/2019 9:20a [facility] Internal Timothytrena Delgado, I10 Essential ( primary) Medicine - [facility] [employer] hypertension Office Visit 04/06/2019 1:40p [facility] Internal Timothytrena Delgado, E11.9 Type 2 diabetes Medicine [facility] [employer] mellitus without complications I10 Essential (primary) hypertension Assessments Date Code Description Provider 08/11/2019 E11.9 Type 2 diabetes mellitus without complications Timothy Delgado NP 08/11/2019 I10 Essential (primary) hypertension Timothy Delgado NP 08/04/2019 E87.6 Hypokalemia Kenny Clark MD 08/04/2019 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 Kenny Clark MD 07/27/2019 S93.491A Sprain of other ligament of right ankle, Misael Barney MD initial encounter 06/16/2019 D22.5 Melanocytic nevi of trunk Emmy Cat MD 06/16/2019 L81.4 Other melanin hyperpigmentation Emmy Cat MD 06/16/2019 I10 Essential (primary) hypertension Timothy Delgado NP 06/01/2019 I10 Essential (primary) hypertension Nurse Visit A 05/21/2019 I10 Essential (primary) hypertension Timothy Delgado NP 05/21/2019 E87.6 Hypokalemia Timothy Delgado NP 05/07/2019 I10 Essential (primary) hypertension Timothy Delgado NP 04/06/2019 E11.9 Type 2 diabetes mellitus without complications Timothy Delgado NP 04/06/2019 I10 Essential (primary) hypertension Timothy Delgado NP Plan of Treatment Future Appointment(s):02/09/2020 10:20 am - Timothy Delgado NP at [facility] Internal Medicine - [facility]11/04/2019 11:00 am - Kenny Clark MD at [facility]08/11/2019 - Timothy Danny, NPE11.9 Type 2 diabetes mellitus without complicationsComments:Your A1c is 6.1% This is good.Continue limiting carbohydrates in your diet.Follow up:6 months, 20 minRecommendations:See your import coordination and production head every year. It is OK to go every 2 years if he finds no retinal damage from diabetes. Ask your import coordination and production head to communicate his findings to us. See a resident hall director every 6 months if you have numbness in your feet or a history of foot ulcers.I10 Essential (primary) hypertensionComments: Continue taking the Amlodipine, atenolol and eplerenone daily.Ask your to check your blood pressure and correlate it with your home machine. Let me know what readings you are getting in about 2-3 weeks. Goals 08/11/2019 - Timothy Delgado NPE11.9 Type 2 diabetes mellitus without complicationsGoal Hemoglobin A1c is less than 7.0%. Goal Blood pressure is less than 130/85. Functional Status Description No Information Available Mental Status Description No Information Available Referrals Refer to Dr Reason for Referral Status Appt Kenny Clark MD Patient Notified 08/04/[address] [place] [address] [phone]
--- OUTSIDE RECORDS SUMMARY | 2019-08-24 18:48 | XMS REPORT | Continuity of Care Document ---
:1980 External Reference #:[id number] Author Name Kenny Clark MD (transmitted by agent of provider Ebony Artis) Address [address] [place] [address] Problems Active Problems Provider Date Essential hypertension Timothy Delgado NP Onset: 03/27/2017 Type 2 diabetes mellitus Timothy Delgado NP Onset: 07/28/2018 Sprain of ankle Misael Barney MD Onset: 07/27/2019 Social History Type Date Description Comments Sex Unknown ETOH Use Occasionally consumes alcohol Tobacco Use Start: Unknown Patient has never smoked Recreational Drug Use Denies Drug Use Smoking Status Reviewed: 08/04/19 Patient has never smoked Exercise Type/Frequency Exercises regularly gym, weights, 3-4 days per week. Allergies, Adverse Reactions, Alerts Description No Known Drug Allergies Medications Active Medications SIG Qnty Indications Ordering Date Provider Eplerenone 50mg once 30tabs E87.6 Kenny Clark MD 08/04/2019 50mg Tablets daily Atenolol 1 by mouth 90tabs I10 Timothy Delgado NP 07/01/2019 50mg Tablets every day Amlodipine Besylate 1 by mouth 90tabs Timothy Delgado NP 05/07/2019 10mg Tablets every day Losartan Potassium 1 by mouth 90tabs Timothy Delgado NP 01/30/2019 100mg Tablets every day Hydrochlorothiazide 1 by mouth 90caps Timothy Delgado NP 01/30/2019 12.5mg every day Capsules Cpap Mask And Supplies use with cpap 1units G47.33 Timothy Delgado NP 2017 Device nightly History Medications Atenolol 1 by mouth every 90tabs I10 Timothy Delgado NP 05/21/2019 - 25mg Tablets day 07/01/2019 Immunizations Description No Information Available Vital Signs Date Vital Result Comment 08/04/2019 8:54am Height 72 inches 6'0" Weight 284.00 lb w/ shoes/walking boot Heart Rate 64 /min BP Systolic Sitting 135 mmHg BP Diastolic Sitting 91 mmHg BMI (Body Mass Index) 38.5 kg/m2 07/27/2019 8:14am Height 72 inches 6'0" Weight 286.00 lb Heart Rate 73 /min BP Systolic 152 mmHg BP Diastolic 86 mmHg Respiratory Rate 16 /min Pain Level 6 BMI (Body Mass Index) 38.8 kg/m2 Results Test Acquired Date Facility Test Result H/L Range Note Basic Metabolic 05/25/2019 [facility] Sodium 137 mmol/L Normal 135-[address] [place] [address] [phone] Potassium 3.7 mmol/L Normal 3.5-5.0 Chloride 102 mmol/L Normal 101-111 Co2 Carbon Dioxide 27 mmol/L Normal 22-32 Anion Gap 8 mmol/L Normal 2-11 Glucose 257 mg/dL High 70-100 Blood Urea Nitrogen 11 mg/dL Normal 6-24 Creatinine 0.73 mg/dL Normal 0.67-1.17 BUN/Creatinine Ratio 15.1 Normal 8-20 Calcium 9.0 mg/dL Normal 8.6-10.3 Egfr Non- 120.2 >60 Egfr 145.5 >60 1 Laboratory test 05/25/2019 [facility] Aldosterone 8.6 ng/dL < =[address] [place] [address] [phone] Sodium 24HR Urine 05/25/2019 [facility] Urine Collection [address] [place], [place] [id number] [phone] Urine Total Volume 3850 mL Urine Sodium Concentration 62 mmol/L Urine Sodium/24 Hour 238 mmol/24 High 40-220 Creatinine Clearance 05/25/2019 [facility] Urine Collection [address] [place] [address] [phone] Urine Total Volume 3850 mL Urine Creatinine Concentration 72.23 mg/dL Creatinine, Serum 0.73 mg/dL Normal 0.51-0.95 Creatinine Clearance 265 mL/min High 97-137 Catecholamine 24HR 05/25/2019 [facility] Urine Collection 24 h Urine Fract [address] [place] [address] [phone] Urine Total Volume 3850 mL Urine Norepinephrine 89 mcg/24h Abnormal 15-80 Urine Epinephrine 8.9 mcg/24h <21 Urine Dopamine 373 mcg/24h 65-400 3 Urine Metanephrines 05/25/2019 [facility] Urine 162 mcg/24h [address] [place] [address] [phone] Urine Normetanephrine 543 mcg/24h 5 Urine Total Metanephrines 705 mcg/24h 6 Urine Collection Duration 24 h Urine Volume 3850 mL 7 Aldosterone 05/25/2019 [facility] Urine 33 mcg/24h Abnormal 2.0-[address] [place] [address] [phone] Urine Collection Duration 24 h Urine Volume 3850 mL 8 CBC Auto 05/20/2019 [facility] White Blood 8.6 10^3/uL Normal 3.5-10.[address] [place] [address] [phone] Red Blood Count 5.65 10^6/uL High 4.18-5.48 [...] Blood Cells % 0.1 Basic Metabolic 05/20/2019 [facility] Sodium 136 mmol/L Normal 135-[address] [place] [address] [phone] Potassium 3.2 mmol/L Low 3.5-5.0 Chloride 101 mmol/L Normal 101-111 Co2 Carbon Dioxide 28 mmol/L Normal 22-32 Anion Gap 7 mmol/L Normal 2-11 Glucose 133 mg/dL High 70-100 Blood Urea Nitrogen 11 mg/dL Normal 6-24 Creatinine 0.72 mg/dL Normal 0.67-1.17 BUN/Creatinine Ratio 15.3 Normal 8-20 Calcium 9.3 mg/dL Normal 8.6-10.3 Egfr Non- 122.2 >60 Egfr 147.8 >60 9 Laboratory test 05/20/2019 [facility] Troponin-I (TnI) 0.00 < 0.03 [address] ng/[place] [address] [phone] Lipid Profile 04/06/2019 [facility] Triglycerides 222 mg/dL 11, 12 (Trig/Chol/HDL) [address] [place] [address] [phone] Cholesterol 196 mg/dL 13 HDL Cholesterol 31.2 mg/dL 14 LDL Cholesterol 120 mg/dL 15 Laboratory test 04/06/2019 [facility] Hemoglobin A1c 6.1 % High 4.0-5.[address] (Glyco HGB) [place] [address] [phone] CBC Auto Diff 03/26/2019 [facility] White Blood 8.1 Normal 3.5 -10.[address] Count 10^3/[place] [address] [phone] Red Blood Count 5.52 10^6/uL High 4.18-5.48 [...] Red Blood Cells % 0.1 Inr/Protime 03/26/2019 [facility] Inr 0.91 Normal 0.82-1.09 [address] [place] [address] [phone] Comp Metabolic 03/26/2019 [facility] Sodium 141 mmol/L Normal 135-145 Panel [address] [place] [address] [phone] Chloride 105 mmol/L Normal 101-111 Co2 Carbon [...] Egfr Non- 100.9 >60 Egfr 122.1 >60 18 Potassium 3.7 mmol/L Normal 3.5-5.0 Anion Gap 8 mmol/L Normal 2-11 Ast 19 U/L Normal 13-39 Laboratory test 03/26/2019 [facility] Troponin-I (TnI) 0.00 ng/ mL <0.04 19 finding [address] [place] [address] [phone] D Dimer Quantitative < 200 ng/mL Normal Less Than 230 20 TSH (Thyroid Stim Horm) 3.57 mcIU/mL Normal 0.34-5.60 1 Because ethnic data is not always readily [...] 15-29 5 Kidney failure <15 (or dialysis) 2 ADDITIONAL INFORMATION Reference range for patients 11 years and older is based on upright A.M. collection from subjects without sodium restrictions. This test was developed and its performance characteristics determined by [facility] in a manner consistent with CLIA requirements. This test has not been cleared or approved by the U.S. Food and Drug Administration. Test Performed by: [facility] [place] [address] Computer Tape Librarian: Amrik Matthew M.D. Ph.D.; CLIA# [id number] 3 ADDITIONAL INFORMATION This test was developed and its performance characteristics determined by [facility] in a manner consistent with CLIA requirements. This test has not been cleared or approved by the U.S. Food and Drug Administration. Test Performed by: [facility] [place] [address] Computer Tape Librarian: Amrik Matthew M.D. Ph.D.; CLIA# [id number] 4 REFERENCE VALUE 44-261 (Normotensive) <400 (Hypertensive) 5 REFERENCE VALUE 111-419 (Normotensive) <900 (Hypertensive) 6 REFERENCE VALUE 200-614 (Normotensive) <1300 (Hypertensive) 7 ADDITIONAL INFORMATION This test was developed and its performance characteristics determined by [facility] in a manner consistent with CLIA requirements. This test has not been cleared or approved by the U.S. Food and Drug Administration. Test Performed by: [facility] [place] [address] Computer Tape Librarian: Amrik Matthew M.D. Ph.D.; CLIA# [id number] 8 ADDITIONAL INFORMATION This test was developed and its performance characteristics determined by [facility] in a manner consistent with CLIA requirements. This test has not been cleared or approved by the U.S. Food and Drug Administration. Test Performed by: [facility] [place] [address] Computer Tape Librarian: Amrik Matthew M.D. Ph.D.; CLIA# [id number] 9 Because ethnic data is not always readily [...] 15-29 5 Kidney failure <15 (or dialysis) 10 Troponin-I testing on Plasma Separator Tubes (PST) has a known false positive rate of 0.20-0.40%. All positive troponins reflex immediately to secondary confirmatory testing. Using the [employer] Access Immunoassay systems, the 99th percentile upper reference limit was demonstrated to be < 0.03 ng/mL. 11 FASTING 12 Desirable: <150 Borderline High: 150-199 High: 200-499 Very High: >500 13 Desirable: <200 Borderline High: 200-239 High: >239 14 Low: <40 Desirable: 40-60 High: >60 15 Desirable: <100 Near Optimal: 100-129 Borderline High: 130-159 High: 160-189 Very High: >189 16 Therapeutic target for the treatment of diabetes mellitus patients is <7% HBA1C, and in selective patients <6.0%. Please refer to [place] [employer] diabetic care guidelines for further information. 17 Standard intensity warfarin therapeutic range: 2.0-3.0 High intensity warfarin therapeutic range: 2.5-3.5 18 Because ethnic data is not always readily [...] 15-29 5 Kidney failure <15 (or dialysis) 19 Troponin-I testing on Plasma Separator Tubes (PST) has a known false positive rate of 0.20-0.40%. All positive troponins reflex immediately to secondary confirmatory testing. Using the [employer] DxI 800 Access Immunoassay systems, the 99th percentile upper reference limit was demonstrated to be < 0.03 ng/mL. 20 Please note: The following may produce a [...] Date Location Provider Dx Diagnosis Office Visit 06/16/2019 [facility] Dermatology Emmy Cat, D22.5 Melanocytic nevi of 11:45a trunk L81.4 Other melanin hyperpigmentation Office Visit 06/16/2019 9:40a [facility] Internal Timothy Delgado, I10 Essential ( [facility] hypertension Office Visit 05/21/2019 2:20p [facility] Internal Timothy Delgado, I10 Essential ( primary) Medicine - [facility] [employer] hypertension E87.6 Hypokalemia Office Visit 05/07/2019 9:20a [facility] Internal Timotyhtrena Delgado, I10 Essential ( [facility] [employer] hypertension Office Visit 04/06/2019 1:40p [facility] Internal Timothy Delgado, E11.9 Type 2 diabetes Medicine - [facility] [employer] mellitus without complications I10 Essential (primary) hypertension Assessments Date Code Description Provider 08/04/2019 E87.6 Hypokalemia Kenny Clark MD 08/04/2019 [...] Timothy Delgado NP Plan of Treatment Future Appointment(s):08/11/2019 9:20 am - Timothy Delgado NP at [facility] Internal Medicine - [facility]08/04/2019 - Kenny Clark MDE87.6 HypokalemiaNew Medication: Eplerenone 50 mg - 50mg once dailyNew Labs:Aldosterone, Scheduled: 08/05/19Renin , Scheduled: 08/05/19Cortisol, Scheduled: 08/05/19Acth, Scheduled: Magnesium, Scheduled: 08/05/19Basic Metabolic Panel, Scheduled: 08/05/19Basic Metabolic Panel, Scheduled: 08/11/19Follow up:3 monthsInstructions:1. Fasting blood tests this week. 2. Do not take morning medications on the day of the blood tests. 3. We will plan to start eplerenone in addition to your other medication. 4. Return in 1 week after starting eplerenone (if needed). 5. Start eplerenone 50mg daily after blood tests. 6. Keep your appointment with Galileo Delgado next week. 7. Plan to recheck potassium level 5-7 days after starting eplerenone. 8. We will contact you to schedule a CT scan of the adrenal glands, if needed. 9. 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
--- OUTSIDE RECORDS SUMMARY | 2019-08-24 18:48 | XMS REPORT | Continuity of Care Document ---
:1980 External Reference #:[id number] Author Name Misael Barney MD (transmitted by agent of provider Susan Sherman) Address [address] [place] [id number] Problems Active Problems Provider Date Essential hypertension [...] E87.6 Kenny Clark MD 08/04/2019 50mg Tablets Losartan 1 by mouth every 90tabs Timothy Delgado NP 08/04/2019 Potassium/Hydrochloro day thiazide 100-12.5mg Tablets Atenolol 1 by mouth every 90tabs I10 Timothy Delgado NP 07/01/2019 50mg Tablets day Amlodipine Besylate 1 by mouth every 90tabs Timothy Delgado NP 05/07/2019 day 10mg Tablets Cpap Mask And use with cpap 1units G47.33 Timothy Delgado NP 05/22/2018 Supplies nightly Device History Medications Atenolol 1 by mouth every [...] Result H/L Range Note Lipid Profile 08/05/2019 [facility] Triglycerides 185 mg/dL 1 (Trig/Chol/HDL) [place] [address] [phone] Cholesterol 188 mg/dL 2 HDL Cholesterol 36.6 mg/dL 3 LDL Cholesterol 114 mg/dL 4 Laboratory test 08/05/2019 [facility] Hemoglobin A1c <pending> finding (Glyco HGB) [place] [address] [phone] Laboratory test 08/05/2019 [facility] Aldosterone <pending> [place] [address] [phone] Renin <pending> Cortisol 4.04 g/dL 5 Acth <pending> Magnesium 1.9 mg/dL Normal 1.9-2.7 Basic Metabolic 08/05/2019 [facility] Sodium 141 mmol/L Normal 135-145 [place] [address] [phone] Potassium 3.8 mmol/L Normal 3.5-5.0 Chloride 105 mmol/L Normal 101-111 Co2 Carbon Dioxide 27 mmol/L Normal 22-32 Anion Gap 9 mmol/L Normal 2-11 Glucose 124 mg/dL High 70-100 Blood Urea Nitrogen 13 mg/dL Normal 6-24 Creatinine 0.63 mg/dL Low 0.67-1.17 BUN/Creatinine Ratio 20.6 High 8-20 Calcium 9.7 mg/dL Normal 8.6-10.3 Egfr Non- 142.5 >60 Egfr 172.5 >60 6 Aldosterone 05/25/2019 [facility] Urine 33 mcg/24h Abnormal 2.0-20 Urine [address] [facility] [place] [address] [phone] Urine Collection Duration 24 h Urine Volume 3850 mL 7 Urine Metanephrines 05/25/2019 [facility] Urine 162 mcg/24h [address] [place] [address] [phone] Urine Normetanephrine 543 mcg/24h 9 Urine Total Metanephrines 705 mcg/24h 10 Urine Collection Duration 24 h Urine Volume 3850 mL 11 Basic Metabolic 05/25/2019 [facility] Sodium 137 mmol/L Normal 135-[address] [place] [address] [phone] Potassium 3.7 mmol/L Normal 3.5-5.0 Chloride 102 mmol/L Normal 101-111 Co2 Carbon Dioxide 27 mmol/L Normal 22-32 Anion Gap 8 mmol/L Normal 2-11 Glucose 257 mg/dL High 70-100 Blood Urea Nitrogen 11 mg/dL Normal 6-24 Creatinine 0.73 mg/dL Normal 0.67-1.17 BUN/Creatinine Ratio 15.1 Normal 8-20 Calcium 9.0 mg/dL Normal 8.6-10.3 Egfr Non- 120.2 >60 Egfr 145.5 >60 12 Laboratory test 05/25/2019 [facility] Aldosterone 8.6 ng/dL < =[address] [place] [address] [phone] Sodium 24HR Urine 05/25/2019 [facility] Urine Collection [address] [place] [address] [phone] Urine Total Volume 3850 mL Urine Sodium Concentration 62 mmol/L Urine Sodium/24 Hour 238 mmol/24 High 40-220 Creatinine Clearance 05/25/2019 [facility] Urine Collection [address] [place] [address] [phone] Urine Total Volume 3850 mL Urine Creatinine Concentration 72.23 mg/dL Creatinine, Serum 0.73 mg/dL Normal 0.51-0.95 Creatinine Clearance 265 mL/min High 97-137 Catecholamine 24HR 05/25/2019 [facility] Urine Collection 24 h Urine Fract [address] [place] [address] [phone] Urine Total Volume 3850 mL Urine Norepinephrine 89 mcg/24h Abnormal 15-80 Urine Epinephrine 8.9 mcg/24h <21 Urine Dopamine 373 mcg/24h 65-400 14 CBC Auto 05/20/2019 [facility] White Blood 8.6 10^3/uL Normal 3.5-10.[address] [place] [address] [phone] Red Blood Count 5.65 10^6/uL High 4.18-5.48 [...] Blood Cells % 0.1 Basic Metabolic 05/20/2019 [facility] Sodium 136 mmol/L Normal 135-[address] [place] [address] [phone] Potassium 3.2 mmol/L Low 3.5-5.0 Chloride 101 mmol/L Normal 101-111 Co2 Carbon Dioxide 28 mmol/L Normal 22-32 Anion Gap 7 mmol/L Normal 2-11 Glucose 133 mg/dL High 70-100 Blood Urea Nitrogen 11 mg/dL Normal 6-24 Creatinine 0.72 mg/dL Normal 0.67-1.17 BUN/Creatinine Ratio 15.3 Normal 8-20 Calcium 9.3 mg/dL Normal 8.6-10.3 Egfr Non- 122.2 >60 Egfr 147.8 >60 15 Laboratory test 05/20/2019 [facility] Troponin-I (TnI) 0.00 < 0.03 [address] ng/[place] [address] [phone] Lipid Profile 04/06/2019 [facility] Triglycerides 222 mg/dL 17, 18 (Trig/Chol/HDL) [address] [place] [address] [phone] Cholesterol 196 mg/dL 19 HDL Cholesterol 31.2 mg/dL 20 LDL Cholesterol 120 mg/dL 21 Laboratory test 04/06/2019 [facility] Hemoglobin A1c 6.1 % High 4.0-5.6 22 finding 101 (Glyco HGB) [place] [address] [phone] CBC Auto Diff 03/26/2019 [facility] White Blood 8.1 Normal 3.5 -10.[address] Count 10^3/[place] [address] [phone] Red Blood Count 5.52 10^6/uL High 4.18-5.48 [...] Red Blood Cells % 0.1 Inr/Protime 03/26/2019 [facility] Inr 0.91 Normal 0.82-1.[address] [place] [address] [phone] Comp Metabolic 03/26/2019 [facility] Sodium 141 mmol/L Normal 135-[address] [place] [address] [phone] Chloride 105 mmol/L Normal 101-111 Co2 Carbon [...] Egfr Non- 100.9 >60 Egfr 122.1 >60 24 Potassium 3.7 mmol/L Normal 3.5-5.0 Anion Gap 8 mmol/L Normal 2-11 Ast 19 U/L Normal 13-39 Laboratory test 03/26/2019 [facility] Troponin-I (TnI) 0.00 ng/ mL <0.04 25 [address] [place] [id number] [phone] D Dimer Quantitative < 200 ng/mL Normal Less Than 230 26 TSH (Thyroid Stim Horm) 3.57 mcIU/mL Normal 0.34-5.60 1 Desirable: <150 Borderline High: 150-199 High: 200-499 Very High: >500 2 Desirable: <200 Borderline High: 200-239 High: >239 3 Low: <40 Desirable: 40-60 High: >60 4 Desirable: <100 Near Optimal: 100-129 Borderline High: 130-159 High: 160-189 Very High: >189 5 AM 8.7-22.4 PM <10 6 Because ethnic data is not always readily [...] 15-29 5 Kidney failure <15 (or dialysis) 7 ADDITIONAL INFORMATION This test was developed and its performance characteristics determined by [facility] in a manner consistent with CLIA requirements. This test has not been cleared or approved by the U.S. Food and Drug Administration. Test Performed by: [facility] [place] [address] Internal Medicine Doctor: Amrik Matthew M.D. Ph.D.; CLIA# [id number] 8 REFERENCE VALUE 44-261 (Normotensive) <400 (Hypertensive) 9 REFERENCE VALUE 111-419 (Normotensive) <900 (Hypertensive) 10 REFERENCE VALUE 200-614 (Normotensive) <1300 (Hypertensive) 11 ADDITIONAL INFORMATION This test was developed and its performance characteristics determined by [facility] in a manner consistent with CLIA requirements. This test has not been cleared or approved by the U.S. Food and Drug Administration. Test Performed by: [facility] [place] [address] Internal Medicine Doctor: Amrik Matthew M.D. Ph.D.; CLIA# [id number] 12 Because ethnic data is not always readily [...] 15-29 5 Kidney failure <15 (or dialysis) 13 ADDITIONAL INFORMATION Reference range for patients 11 years and older is based on upright A.M. collection from subjects without sodium restrictions. This test was developed and its performance characteristics determined by [facility] in a manner consistent with CLIA requirements. This test has not been cleared or approved by the U.S. Food and Drug Administration. Test Performed by: [facility] [address] Internal Medicine Doctor: Amrik Matthew M.D. Ph.D.; CLIA# [id number] 14 ADDITIONAL INFORMATION This test was developed and its performance characteristics determined by [facility] in a manner consistent with CLIA requirements. This test has not been cleared or approved by the U.S. Food and Drug Administration. Test Performed by: [facility] [address] Internal Medicine Doctor: Amrik Matthew M.D. Ph.D.; CLIA# [id number] 15 Because ethnic data is not always readily [...] 15-29 5 Kidney failure <15 (or dialysis) 16 Troponin-I testing on Plasma Separator Tubes (PST) has a known false positive rate of 0.20-0.40%. All positive troponins reflex immediately to secondary confirmatory testing. Using the [employer] DxI 800 Access Immunoassay systems, the 99th percentile upper reference limit was demonstrated to be < 0.03 ng/mL. 17 FASTING 18 Desirable: <150 Borderline High: 150-199 High: 200-499 Very High: >500 19 Desirable: <200 Borderline High: 200-239 High: >239 20 Low: <40 Desirable: 40-60 High: >60 21 Desirable: <100 Near Optimal: 100-129 Borderline High: 130-159 High: 160-189 Very High: >189 22 Therapeutic target for the treatment of diabetes mellitus patients is <7% HBA1C, and in selective patients <6.0%. Please refer to [place] [employer] diabetic care guidelines for further information. 23 Standard intensity warfarin therapeutic range: 2.0-3.0 High intensity warfarin therapeutic range: 2.5-3.5 24 Because ethnic data is not always readily [...] 15-29 5 Kidney failure <15 (or dialysis) 25 Troponin-I testing on Plasma Separator Tubes (PST) has a known false positive rate of 0.20-0.40%. All positive troponins reflex immediately to secondary confirmatory testing. Using the [employer] DxI 800 Access Immunoassay systems, the 99th percentile upper reference limit was demonstrated to be < 0.03 ng/mL. 26 Please note: The following may produce a [...] Date Location Provider Dx Diagnosis Office Visit 07/27/2019 [facility] Misael Barney, S93.491A Sprain of other 8:00a at [place] ligament of right ankle, initial encounter Office Visit 06/16/2019 [facility] Dermatology Emmy Cat, D22.5 Melanocytic nevi 11:45a of trunk L81.4 Other melanin hyperpigmentation Office Visit 06/16/2019 9:40a [facility] Internal Timothytrena Delgado, I10 Essential ( primary) Medicine - [facility] [employer] hypertension Office Visit 05/21/2019 2:20p [facility] Internal Timothy Delgado, I10 Essential ( primary) Medicine - [facility] [employer] hypertension E87.6 Hypokalemia Office Visit 05/07/2019 9:20a [facility] Internal Timothytrena Delgado, I10 Essential ( primary) Medicine - [facility] [employer] hypertension Office Visit 04/06/2019 1:40p [facility] Internal Timothy Delgado, E11.9 [facility] mellitus without complications I10 Essential (primary) hypertension [...] Timothy Delgado NP Plan of Treatment Future Appointment(s):11/04/2019 11:00 am - Kenny Clark MD at [facility]08/11/2019 9:20 am - Timothy Delgado NP at [facility] Internal Medicine - [facility]08/04/2019 - Kenny Clark MDE87.6 HypokalemiaNew Medication: Eplerenone 50 mg - 50mg once dailyNew Labs:Basic Metabolic Panel, Scheduled: Follow up:3 monthsInstructions:1. Fasting blood tests this week. [...] Patient Notified 08/04/[address] [place] [phone]
--- OUTSIDE RECORDS SUMMARY | 2019-08-24 18:48 | XMS REPORT | Continuity of Care Document ---
:1980 External Reference #:[id number] Author Name Misael Barney MD (transmitted by agent of provider Diana Ramachanrdan) Address [address] [place] [address] Problems Active Problems Provider Date Essential hypertension Timothy Delgado NP Onset: 03/27/2017 Type 2 diabetes mellitus Timothy Delgado NP Onset: 07/28/2018 Sprain of ankle Misael Barney MD Onset: 07/27/2019 Social History Type Date Description Comments Sex Unknown ETOH Use Occasionally consumes alcohol Tobacco Use Start: Unknown Patient has never smoked Smoking Status Reviewed: 07/27/19 Patient has never smoked Exercise Type/Frequency Exercises regularly Allergies, Adverse Reactions, Alerts Description No Known Drug Allergies Medications Active Medications SIG Qnty Indications Ordering Date Provider Atenolol 1 by mouth 90tabs I10 Timothy [...] Available Vital Signs Date Vital Result Comment 07/27/2019 8:14am Height 72 inches 6'0" Weight 286.00 lb Heart Rate 73 /min BP Systolic 152 mmHg BP Diastolic 86 mmHg Respiratory Rate 16 /min Pain Level 6 BMI (Body Mass Index) 38.8 kg/m2 06/16/2019 9:45am Height 72 inches 6'0" Weight 281.25 lb Heart Rate 74 /min BP Systolic Sitting 146 mmHg BP Diastolic Sitting 83 mmHg Body Temperature 98.4 F O2 % BldC Oximetry 98 % BMI (Body Mass Index) 38.1 kg/m2 Results Test Acquired Date Facility Test Result H/L Range Note Basic Metabolic 05/25/2019 [facility] Sodium 137 mmol/L Normal 135-145 Panel [address] [place] [address] [phone] Potassium 3.7 mmol/L Normal 3.5-5.0 Chloride 102 mmol/L Normal 101-111 Co2 Carbon Dioxide 27 mmol/L Normal 22-32 Anion Gap 8 mmol/L Normal 2-11 Glucose 257 mg/dL High 70-100 Blood Urea Nitrogen 11 mg/dL Normal 6-24 Creatinine 0.73 mg/dL Normal 0.67-1.17 BUN/Creatinine Ratio 15.1 Normal 8-20 Calcium 9.0 mg/dL Normal 8.6-10.3 Egfr Non- 120.2 >60 Egfr 145.5 >60 1 Laboratory test 05/25/2019 [facility] Aldosterone 8.6 ng/dL < =21 2 finding [address] [place] [address] [phone] Sodium 24HR Urine 05/25/2019 [facility] Urine Collection 24 hr [address] [place] [address] [phone] Urine Total Volume 3850 mL Urine Sodium Concentration 62 mmol/L Urine Sodium/24 Hour 238 mmol/24 High 40-220 Creatinine Clearance 05/25/2019 [facility] Urine Collection [address] [place] [address] [phone] Urine Total Volume 3850 mL Urine Creatinine Concentration 72.23 mg/dL Creatinine, Serum 0.73 mg/dL Normal 0.51-0.95 Creatinine Clearance 265 mL/min High 97-137 Catecholamine 24HR 05/25/2019 [facility] Urine Collection 24 h Urine Fract [address] [place] [address] [phone] Urine Total Volume 3850 mL Urine Norepinephrine 89 mcg/24h Abnormal 15-80 Urine Epinephrine 8.9 mcg/24h <21 Urine Dopamine 373 mcg/24h 65-400 3 Urine Metanephrines 05/25/2019 [facility] Urine 162 mcg/24h [address] [place] [address] [phone] Urine Normetanephrine 543 mcg/24h 5 Urine Total Metanephrines 705 mcg/24h 6 Urine Collection Duration 24 h Urine Volume 3850 mL 7 Aldosterone 05/25/2019 [facility] Urine 33 mcg/24h Abnormal 2.0-[address] [place] [address] [phone] Urine Collection Duration 24 h Urine Volume 3850 mL 8 CBC Auto 05/20/2019 [facility] White Blood 8.6 10^3/uL Normal 3.5-10.[address] [place] [address] [phone] Red Blood Count 5.65 10^6/uL High 4.18-5.48 [...] Cells % 0.1 Basic Metabolic 05/20/2019 [facility] Sodium 136 mmol/L Normal 135-[address] [place] [address] [phone] Potassium 3.2 mmol/L Low 3.5-5.0 Chloride 101 mmol/L Normal 101-111 Co2 Carbon Dioxide 28 mmol/L Normal 22-32 Anion Gap 7 mmol/L Normal 2-11 Glucose 133 mg/dL High 70-100 Blood Urea Nitrogen 11 mg/dL Normal 6-24 Creatinine 0.72 mg/dL Normal 0.67-1.17 BUN/Creatinine Ratio 15.3 Normal 8-20 Calcium 9.3 mg/dL Normal 8.6-10.3 Egfr Non- 122.2 >60 Egfr 147.8 >60 9 Laboratory test 05/20/2019 [facility] Troponin-I (TnI) 0.00 < 0.03 [address] ng/[place] [address] [phone] Lipid Profile 04/06/2019 [facility] Triglycerides 222 mg/dL 11, 12 (Trig/Chol/HDL) [address] [place] [address] [phone] Cholesterol 196 mg/dL 13 HDL Cholesterol 31.2 mg/dL 14 LDL Cholesterol 120 mg/dL 15 Laboratory test 04/06/2019 [facility] Hemoglobin A1c 6.1 % High 4.0-5.6 [address] (Glyco HGB) [place] [address] [phone] CBC Auto Diff 03/26/2019 [facility] White Blood 8.1 Normal 3.5 -10.[address] Count 10^3/[place] [address] [phone] Red Blood Count 5.52 10^6/uL High 4.18-5.48 [...] Blood Cells % 0.1 Inr/Protime 03/26/2019 [facility] Inr 0.91 Normal 0.82-1.09 17 [address] [place] [address] [phone] Comp Metabolic 03/26/2019 [facility] Sodium 141 mmol/L Normal 135-145 Panel [address] [place] [address] [phone] Chloride 105 mmol/L Normal 101-111 Co2 Carbon [...] U/L Normal 13-39 Laboratory test 03/26/2019 [facility] Troponin-I (TnI) 0.00 ng/ mL <0.04 19 finding [address] [place] [address] [phone] D Dimer Quantitative < 200 ng/mL Normal [...] developed and its performance characteristics determined by [facility] in a manner consistent with CLIA requirements. This test has not been cleared or approved by the U.S. Food and Drug Administration. Test Performed by: [facility] [employer] [place] [address] Helmet Hat Sweatband Puncher: Amrik Matthew M.D. Ph.D.; CLIA# [id number] 3 ADDITIONAL INFORMATION This test was developed and its performance characteristics determined by [facility] in a manner consistent with CLIA requirements. This test has not been cleared or approved by the U.S. Food and Drug Administration. Test Performed by: [facility] [employer] [place] [address] Helmet Hat Sweatband Puncher: Amrik Matthew M.D. Ph.D.; CLIA# [id number] 4 REFERENCE VALUE 44-261 (Normotensive) <400 (Hypertensive) 5 REFERENCE VALUE 111-419 (Normotensive) <900 (Hypertensive) 6 REFERENCE VALUE 200-614 (Normotensive) <1300 (Hypertensive) 7 ADDITIONAL INFORMATION This test was developed and its performance characteristics determined by [facility] in a manner consistent with CLIA requirements. This test has not been cleared or approved by the U.S. Food and Drug Administration. Test Performed by: [facility] [employer] [place] [address] Helmet Hat Sweatband Puncher: Amrik Matthew M.D. Ph.D.; CLIA# [id number] 8 ADDITIONAL INFORMATION This test was developed and its performance characteristics determined by [facility] in a manner consistent with CLIA requirements. This test has not been cleared or approved by the U.S. Food and Drug Administration. Test Performed by: [facility] [place] [address] Helmet Hat Sweatband Puncher: Amrik Matthew M.D. Ph.D.; CLIA# [id number] 9 Because ethnic data is not always [...] immediately to secondary confirmatory testing. Using the [employer] DxI 800 Access Immunoassay systems, the 99th [...] in selective patients <6.0%. Please refer to [place] [employer] diabetic care guidelines for further [...] immediately to secondary confirmatory testing. Using the [employer] DxI 800 Access Immunoassay systems, the 99th [...] Location Provider Dx Diagnosis Office Visit 06/16/2019 [facility] Dermatology Emmy Cat, D22.5 Melanocytic nevi of 11:45a trunk L81.4 Other melanin hyperpigmentation Office Visit 06/16/2019 9:40a [facility] Internal Timothy Delgado, I10 Essential ( primary) Medicine - [facility] SENIOR SALES REPRESENTATIVE hypertension Office Visit 05/21/2019 2:20p [facility] Internal Timothy Delgado, I10 Essential ( primary) Medicine - [facility] SENIOR SALES REPRESENTATIVE hypertension E87.6 Hypokalemia Office Visit 05/07/2019 9:20a [facility] Internal Timothy Delgado, I10 Essential ( primary) Medicine - [facility] SENIOR SALES REPRESENTATIVE hypertension Office Visit 04/06/2019 1:40p [facility] Internal Timothy Delgado, E11.9 Type 2 diabetes Medicine - [facility] SENIOR SALES REPRESENTATIVE mellitus without complications I10 Essential (primary) hypertension Assessments Date Code Description Provider 07/27/2019 S93.491A Sprain of other ligament of [...] 9:20 am - Timothy Delgado NP at [facility] Internal Medicine - [facility]07/27/2019 - RAGHAV Vickers93.491A Sprain of other ligament of right ankle, initial encounterNew Therapy:Physical TherapyFollow up:Follow Up : As needed Functional Status Description No Information Available Mental Status Description No Information Available Referrals Refer to Reason for Referral Status Appt Date Kenny Clark MD Patient Notified 08/04/[address] [place] [address] [phone]
--- OUTSIDE RECORDS SUMMARY | 2019-08-24 18:48 | XMS REPORT | Continuity of Care Document ---
:1980 External Reference #:[id number] Author Name Kenny Clark MD (transmitted by agent of provider Adriana Hunter) Address [address] [place] [address] Problems Active Problems Provider Date Essential hypertension Timothy Delgado NP Onset: 03/27/2017 Type 2 diabetes mellitus Timothy Delgado NP Onset: 07/28/2018 Sprain of ankle Misael MD Ector Onset: 07/27/2019 Social History Type Date Description [...] Medications SIG Qnty Indications Ordering Provider Date Irbesartan 2 tabs by mouth 60tabs Timothy Delgado NP 08/17/2019 75mg Tablets daily Eplerenone 50mg once daily 30tabs E87.6 Kenny [...] NP 08/10/2019 - 150mg Tablets every day 08/17/2019 Losartan Potassium 1 by mouth 90tabs Timothy [...] Result H/L Range Note Lipid Profile 08/05/2019 [facility] Triglycerides 185 mg/dL 1 (Trig/Chol/HDL) [address] [place] [address] [phone] Cholesterol 188 mg/dL 2 HDL Cholesterol 36.6 mg/dL 3 LDL Cholesterol 114 mg/dL 4 Laboratory test 08/05/2019 [facility] Hemoglobin A1c 6.1 % High 4.0-5.6 5 finding 101 (Glyco HGB) [place] [address] [phone] Laboratory test 08/05/2019 [facility] Aldosterone 7.1 <=[address] ng/[place] [address] [phone] Renin <0.6 ng/mL/h 7 Cortisol 4.04 g/dL 8 Acth 17 pg/mL 9 Magnesium 1.9 mg/dL Normal 1.9-2.7 Basic Metabolic 08/05/2019 [facility] Sodium 141 mmol/L Normal 135-[address] [place] [address] [phone] Potassium 3.8 mmol/L Normal 3.5-5.0 Chloride 105 mmol/L Normal 101-111 Co2 Carbon Dioxide 27 mmol/L Normal 22-32 Anion Gap 9 mmol/L Normal 2-11 Glucose 124 mg/dL High 70-100 Blood Urea Nitrogen 13 mg/dL Normal 6-24 Creatinine 0.63 mg/dL Low 0.67-1.17 BUN/Creatinine Ratio 20.6 High 8-20 Calcium 9.7 mg/dL Normal 8.6-10.3 Egfr Non- 142.5 >60 Egfr 172.5 >60 10 Aldosterone 05/25/2019 [facility] Urine 33 mcg/24h Abnormal 2.0-[address] [place] [address] [phone] Urine Collection Duration 24 h Urine Volume 3850 mL 11 Urine Metanephrines 05/25/2019 [facility] Urine 162 mcg/24h [address] [place] [address] [phone] Urine Normetanephrine 543 mcg/24h 13 Urine Total Metanephrines 705 mcg/24h 14 Urine Collection Duration 24 h Urine Volume 3850 mL 15 Basic Metabolic 05/25/2019 [facility] Sodium 137 mmol/L Normal 135-[address] [place] [address] [phone] Potassium 3.7 mmol/L Normal 3.5-5.0 Chloride 102 mmol/L Normal 101-111 Co2 Carbon Dioxide 27 mmol/L Normal 22-32 Anion Gap 8 mmol/L Normal 2-11 Glucose 257 mg/dL High 70-100 Blood Urea Nitrogen 11 mg/dL Normal 6-24 Creatinine 0.73 mg/dL Normal 0.67-1.17 BUN/Creatinine Ratio 15.1 Normal 8-20 Calcium 9.0 mg/dL Normal 8.6-10.3 Egfr Non- 120.2 >60 Egfr 145.5 >60 16 Laboratory test 05/25/2019 [facility] Aldosterone 8.6 ng/dL < =21 [address] [place] [address] [phone] Sodium 24HR Urine 05/25/2019 [facility] Urine Collection [address] [place] [address] [phone] Urine Total Volume 3850 mL Urine Sodium Concentration 62 mmol/L Urine Sodium/24 Hour 238 mmol/24 High 40-220 Creatinine Clearance 05/25/2019 [facility] Urine Collection [address] [place] [address] [phone] Urine Total Volume 3850 mL Urine Creatinine Concentration 72.23 mg/dL Creatinine, Serum 0.73 mg/dL Normal 0.51-0.95 Creatinine Clearance 265 mL/min High 97-137 Catecholamine 24HR 05/25/2019 [facility] Urine Collection 24 h Urine Fract [address] [place] [address] [phone] Urine Total Volume 3850 mL Urine Norepinephrine 89 mcg/24h Abnormal 15-80 Urine Epinephrine 8.9 mcg/24h <21 Urine Dopamine 373 mcg/24h 65-400 18 CBC Auto 05/20/2019 [facility] White Blood 8.6 10^3/uL Normal 3.5-10.[address] [place] [address] [phone] Red Blood Count 5.65 10^6/uL High 4.18-5.48 [...] Blood Cells % 0.1 Basic Metabolic 05/20/2019 [facility] Sodium 136 mmol/L Normal 135-[address] [place] [address] [phone] Potassium 3.2 mmol/L Low 3.5-5.0 Chloride 101 mmol/L Normal 101-111 Co2 Carbon Dioxide 28 mmol/L Normal 22-32 Anion Gap 7 mmol/L Normal 2-11 Glucose 133 mg/dL High 70-100 Blood Urea Nitrogen 11 mg/dL Normal 6-24 Creatinine 0.72 mg/dL Normal 0.67-1.17 BUN/Creatinine Ratio 15.3 Normal 8-20 Calcium 9.3 mg/dL Normal 8.6-10.3 Egfr Non- 122.2 >60 Egfr 147.8 >60 19 Laboratory test 05/20/2019 [facility] Troponin-I (TnI) 0.00 < 0.03 [address] ng/[place] [address] [phone] Lipid Profile 04/06/2019 [facility] Triglycerides 222 mg/dL 21, 22 (Trig/Chol/HDL) [address] [place] [address] [phone] Cholesterol 196 mg/dL 23 HDL Cholesterol 31.2 mg/dL 24 LDL Cholesterol 120 mg/dL 25 Laboratory test 04/06/2019 [facility] Hemoglobin A1c 6.1 % High 4.0-5.6 [address] (Glyco HGB) [place] [address] [phone] CBC Auto Diff 03/26/2019 [facility] White Blood 8.1 Normal 3.5 -10.[address] Count 10^3/[place] [address] [phone] Red Blood Count 5.52 10^6/uL High 4.18-5.48 [...] Red Blood Cells % 0.1 Inr/Protime 03/26/2019 [facility] Inr 0.91 Normal 0.82-1.09 27 [address] [place] [address] [phone] Comp Metabolic 03/26/2019 [facility] Sodium 141 mmol/L Normal 135-145 Panel [address] [place] [address] [phone] Chloride 105 mmol/L Normal 101-111 Co2 Carbon [...] 19 U/L Normal 13-39 Laboratory test 03/26/2019 [facility] Troponin-I (TnI) 0.00 ng/ mL <0.04 29 finding [address] [place] [address] [phone] D Dimer Quantitative < 200 ng/mL Normal [...] in selective patients <6.0%. Please refer to [place] [employer] diabetic care guidelines for further information. 6 ADDITIONAL INFORMATION Reference range for patients 11 years and older is based on upright A.M. collection from subjects without sodium restrictions. This test was developed and its performance characteristics determined by [facility] in a manner consistent with CLIA requirements. This test has not been cleared or approved by the U.S. Food and Drug Administration. Test Performed by: [facility] [place] [address] Shipbuilding Draftsperson: Amrik Matthew M.D. Ph.D.; CLIA# [id number] 7 REFERENCE VALUE (Peripheral vein specimen) Na-deplete, upright: Mean: 10.8 Range: 2.9-24 Na-replete, upright: Mean: 1.9 Range: < or =0.6-4.3 ADDITIONAL INFORMATION Testing performed by Liquid Chromatography-Tandem Mass Spectrometry (LC-MS/MS). This test was developed and its performance characteristics determined by [facility] in a manner consistent with CLIA requirements. This test has not been cleared or approved by the U.S. Food and Drug Administration. Test Performed by: [facility] [place] [address] Shipbuilding Draftsperson: Amrik Matthew M.D. Ph.D.; CLIA# [id number] 8 AM 8.7-22.4 PM <10 9 REFERENCE VALUE 7.2-63 (a.m. collection) Test Performed by: [facility] [place] [address] Shipbuilding Draftsperson: Amrik Matthew M.D. Ph.D.; CLIA# [id number] 10 Because ethnic data is not always [...] developed and its performance characteristics determined by [facility] in a manner consistent with CLIA requirements. This test has not been cleared or approved by the U.S. Food and Drug Administration. Test Performed by: [facility] [place] [address] Shipbuilding Draftsperson: Amrik Matthew M.D. Ph.D.; CLIA# [id number] 12 REFERENCE VALUE 44-261 (Normotensive) <400 (Hypertensive) 13 REFERENCE VALUE 111-419 (Normotensive) <900 (Hypertensive) 14 REFERENCE VALUE 200-614 (Normotensive) <1300 (Hypertensive) 15 ADDITIONAL INFORMATION This test was developed and its performance characteristics determined by [facility] in a manner consistent with CLIA requirements. This test has not been cleared or approved by the U.S. Food and Drug Administration. Test Performed by: [facility] - [address] [address] Shipbuilding Draftsperson: Amrik Matthew M.D. Ph.D.; CLIA# [id number] 16 Because ethnic data is not always [...] developed and its performance characteristics determined by [facility] in a manner consistent with CLIA requirements. This test has not been cleared or approved by the U.S. Food and Drug Administration. Test Performed by: [facility] [place] [address] Shipbuilding Draftsperson: Amrik Matthew M.D. Ph.D.; CLIA# [id number] 18 ADDITIONAL INFORMATION This test was developed and its performance characteristics determined by [facility] in a manner consistent with CLIA requirements. This test has not been cleared or approved by the U.S. Food and Drug Administration. Test Performed by: [facility] [place] [address] Shipbuilding Draftsperson: Amrik Matthew M.D. Ph.D.; CLIA# [id number] 19 Because ethnic data is not always [...] immediately to secondary confirmatory testing. Using the [employer] DxI 800 Access Immunoassay systems, the 99th [...] in selective patients <6.0%. Please refer to [place] [employer] diabetic care guidelines for further [...] immediately to secondary confirmatory testing. 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 Office Visit 07/27/2019 [facility] Misael Barney, S93.491A Sprain of other 8:00a Orthopedics at [facility] ligament of [place] right ankle, initial encounter Office Visit 06/16/2019 [facility] Dermatology Emmy Cat, D22.5 Melanocytic nevi 11:45a MD of trunk L81.4 Other melanin hyperpigmentation Office Visit 06/16/2019 9:40a [facility] Internal Timothy Danny, I10 Essential ( [facility]LASTIC OPERATOR [employer] hypertension Office Visit 05/21/2019 2:20p [facility] Internal Timothy Danny, I10 Essential ( [facility] TUNNEL ELASTIC OPERATOR ZIGZAG hypertension E87.6 Hypokalemia Office Visit 05/07/2019 9:20a [facility] Internal Timothy Danny, I10 Essential ( [facility] TUNNEL ELASTIC OPERATOR ZIGZAG hypertension Office Visit 04/06/2019 1:40p [facility] Internal Timothy Danny, E11.9 Type 2 diabetes Medicine - [facility] TUNNEL ELASTIC OPERATOR ZIGZAG mellitus without complications I10 Essential (primary) hypertension [...] 10:20 am - Timothy Delgado NP at [facility] 11:00 am - Kenny Clark MD at [facility]08/11/2019 - Timothy Delgado NPE11.9 Type 2 diabetes mellitus without complicationsComments:Your A1c is 6.1% This is good.Continue limiting carbohydrates in your diet.Follow up:6 months, 20 minRecommendations:See your consumer loan specialist every year. It is OK to go every 2 years if he finds no retinal damage from diabetes. Ask your consumer loan specialist to communicate his findings to us. See a drapery head former every 6 months if you have numbness [...] Notified 08/04/[address] [place] [address] [phone]
--- NOTE | 2019-08-24 19:15 | UC ---
[facility] HPI HPI Summary: 38-year-old male has a telehealth visit. Patient's chief complaint is fever and feeling ill since this morning. Using the patient's own thermometer at home he measured fevers ranging from 100.8-101.5. He woke up this morning not feeling well. His recently had strep throat. He has a mild cough denies any shortness of breath. No headache. Overall feeling weak no myalgias. No known contacts with anyone recently with influenza or Covid. Telehealth PMH Previously Healthy: Yes Endocrine/Hematology History: Denies: Hx Diabetes Cardiovascular History: Reports: Hx Hypertension Denies: Hx Hypercholesterolemia Sensory History: Denies: Hx Legally Blind, Hx Deafness Opthamlomology History: Denies: Hx Legally Blind - Surgical History Surgery Procedure, Year, and Place: Back surgery - Immunization History Date of Influenza Vaccine: - Family History Known Family History: Positive: Cardiac Disease, Other - [place] - Social History Alcohol Use: Weekly Hx Substance Use: No Substance Use Type: Reports: None Hx Tobacco Use: No Smoking Status (MU): Never Smoked Tobacco [facility] ROS All Other Systems Reviewed And Are Negative: Yes Positive: Fever, Fatigue, Other - SEE HPI Eyes: Negative Positive: Sore Throat, Nasal Discharge Cardiovascular: Negative Positive: Cough - SEE HPI Gastrointestinal: Negative Musculoskeletal: Negative Skin: Negative Neurological/Mental Status: Negative Positive: Headache Psychological: Normal Telehealth PE Appearance: Positive: Well-Appearing, Alert and Oriented, No Pain Distress Skin: Positive: Warm, Skin Color Reflects Adequate Perfusion Eyes: Positive: Normal ENT: Positive: Hearing grossly normal, Other - when I obtained the strep test posterior pharynx was open and there was mild erythema Neck: Positive: Supple Respiratory/Lung Sounds: Positive: Normal Respiratory Effort Cardiovascular: Positive: Skin Color Reflects Adequate Perfusion Neurological: Positive: Alert, Oriented to Person Place, Time Psychiatric: Positive: Normal [facility] Course/Dx Assessment/Plan: Strep is positive influenza was negative. [place] 19 was obtained. Patient will be in self isolation. Provider Diagnoses: Strep pharyngitis, Fever [facility] Disposition Provider Recommendation for Treatment: Primary Care Physician Telehealth Visit: Patient Consented Verbally to Telehealth Visit Telehealth Patient Statement: The patient should understand that they are communicating with their provider via a secure communication platform and that all the same privacy and confidentiality rules apply. They will also be responsible for copayments or coinsurances that apply to any Telehealth visit. Patient Identifiers: 2 Patient Identifiers Verified for Telehealth Visit Telehealth Visit Start Time: 19:00 Telehealth Visit End Time: 19:35 Telehealth Provider Attestation: The above services were appropriate to provide in a Telehealth setting.
[2019-08-24 19:25] LABS: Influenza A Molecular Negative (Negative); Influenza B Molecular Negative (Negative)
== END 2019-08-24 19:40 | disposition home or self-care (01) ==
LOC: UCEAST 18:19
DX: J02.0 Streptococcal pharyngitis (principal); R50.9 Fever, unspecified; R05 Cough; Z20.828 Contact with and (suspected) exposure to other viral communicable diseases; I10 Essential (primary) hypertension; Z79.899 Other long term (current) drug therapy
CPT/HCPCS: 87635; 87651; 99202; G0463